=== PATIENT | female | born 1955 | race Caucasian/White ===

== ENCOUNTER 2022-01-22 10:50 | Emergency (ER) | payer MEDICARE, BC, SELFPAY ==
[2022-01-22 11:00] VITALS: BP 150/86; PULSE 66; RESP 16; TEMP 36.8; O2SAT 97; BMI 22.4
--- NOTE | 2022-01-22 11:54 | ED.NURSE ---
report received from jw couch, care taken over. pt resting in bed, waiting for MD to see. R leg elevated on pillow.
--- NOTE | 2022-01-22 12:44 | ED.LOWEXIN ---
HPI - Extremity Injury (Lower) General Time Seen by Provider: 12:44 Date Seen: 01/22/22 Chief Complaint: Extremity Pain/Injury, Lower Stated Complaint: Road rash right mohamud Time Seen by Provider: 01/22/22 12:36 Source: patient and RN notes reviewed Mode of arrival: ambulatory Limitations: no limitations History of Present Illness HPI Narrative: Vane is a very pleasant 66-year-old female stating that she is otherwise healthy who comes to the emergency room for evaluation regarding right leg injury. Patient noted that on, she was trying to help hold a piece of siding and it fell causing a injury to her right lower leg. This occurred 1 week ago. Patient has been ambulating without difficulty and has not been experiencing any fever or chills. This area was starting to scab over but then started to look red and has been weeping in the past couple days. Patient's neighbor actually director her cut to come to the emergency room. Patient denies any significant pain. MD complaint: leg injury Onset (ago): week(s) Type of Injury: other (Skin avulsion) Place: home Severity: mild Associated symptoms: ambulatory Related Data Home Medications Medication Instructions Recorded Confirmed levothyroxine 75 mcg tablet 75 mcg PO DAILY 01/22/22 01/22/22 Previous Rx's Medication Instructions Recorded cephalexin 500 mg capsule 500 mg PO QID #28 cap 01/22/22 Allergies Allergy/AdvReac Type Severity Reaction Status Date / Time Sulfa (Sulfonamide Allergy Severe Rash Verified 01/22/22 11:04 Antibiotics) Review of Systems Status of ROS: Reports: 6 or more systems reviewed and unremarkable except as noted in History and below Const: Denies: fever or chills Cardio: Denies: chest pain or shortness of breath with exertion Resp: Denies: shortness of breath GI: Denies: abdominal pain, nausea or vomiting Musculo: Denies: back pain or extremity pain Neuro: Denies: numbness in extremities PFSH PFSH Social History Smoking Status: Never smoker Do you use any of these nicotine containing products: None Second hand tobacco smoke exposure: No How often do you have a drink containing alcohol: monthly or less AUDIT-C Alcohol total score: 1 Non-prescribed substance use: denies use service: No Exam Narrative: Exam Narrative: Past medical history hypothyroidism Family history lung cancer Social history Const: Vital Signs, click to edit/add: Vital Signs - 24 hr 01/22/22 11:00 Temperature 98.2 F Pulse Rate [Pulse Oximeter] 66 Respiratory Rate 16 Blood Pressure [Le ft Upper Arm] 150/86 H Pulse Oximetry 97 Documenting provider has reviewed patient's vital signs: yes Common normals: no apparent distress, oriented x3, no limitations and healthy appearing General appearance: cooperative HENMT: Common normals: external ears normal External ear: external ears normal Eye: General eye: normal appearance of both eyes Neck & C-Spine: Common normals: full ROM Resp: Common normals: normal respiratory effort and clear to auscultation bilaterally Auscultation: clear to auscultation bilaterally Cardio: Common normals: regular rate and regular rhythm Rate: regular rate Rhythm: regular rhythm Extremity: Right lower extremity: lower leg (Distal anterior mohamud right-sided scabbing and erythema) Other: Large scabbing over the distal anterior mohamud measuring approximately 8 cm in vertical height and 4 cm in horizontal height. This scab is weeping there is surrounding erythema. There is a large area of resolving ecchymosis extending onto the medial and lateral leg as well as nearly to the knee. There is no calf tenderness. The foot is somewhat edematous at 1+. Pedal pulses are intact. Neuro: Common normals: oriented x3 Skin: General skin exam: erythema and eschar Trauma: other Course Course Hospital Course: Patient clearly has infection of the right lower extremity. She has no systemic symptoms at this time. Will check a CBC, basic panel, CRP as well as get wound culture. IV will be placed. Vital Signs Vital signs: Initial Vital Signs Temperature 98.2 F 01/22/22 11:00 Temperature Source Temporal Artery Scan 01/22/22 11:00 Pulse Rate 66 01/22/22 11:00 Pulse Rhythm 01/22/22 11:00 Respiratory Rate 16 01/22/22 11:00 Blood Pressure 150/86 H 01/22/22 11:00 Blood Pressure Mean 107 01/22/22 11:00 Blood Pressure Position Sitting 01/22/22 11:00 Pulse Oximetry 97 01/22/22 11:00 Oxygen Delivery Method 01/22/22 11:00 Vital Signs Temperature 98.2 F 01/22/22 11:00 Pulse Rate 66 01/22/22 11:00 Respiratory Rate 16 01/22/22 11:00 Blood Pressure 150/86 H 01/22/22 11:00 Pulse Oximetry 97 01/22/22 11:00 Temperature 98.2 F 01/22/22 11:00 Pulse Rate 66 01/22/22 11:00 Respiratory Rate 16 01/22/22 11:00 Blood Pressure 150/86 H 01/22/22 11:00 Pulse Oximetry 97 01/22/22 11:00 MDM - Extremity Injury (Lower) MDM Narrative Medical decision making narrative: 1. Cellulitis-patient appears to have secondary cellulitis from a healing wound. White count reassuring at 4.89. Creatinine normal at 0.6. Will treat patient with Keflex 500 mg p.o. t.i.d.. I have asked patient to take her 1st doses a 1000 mg. I would continue to monitor this patient and return to the emergency room for any fever, vomiting or worsening symptoms. I suspect she will need to have wound consult at the wound care center and we will set her up for that appointment. She may need some debridement of the wound. 2. Disposition-patient is discharged home. Lab Data Attestation: I reviewed the patient's lab results. Labs: Lab Results 01/22/22 01/22/22 Range/Units 12:43 12:43 WBC 4.89 (4.50-11.00) K/uL RBC 4.27 (4.00-5.20) m/uL Hgb 12.8 (12.0-16.0) gm/dL Hct 38.8 (33.0-51.0) % MCV 91 (80-100) fL MCH 30 (26-34) pg MCHC 33 (32-36) gm/dL RDW Coeff of Riccardo 14.2 (11.5-15.5) % Plt Count 314 (140-440) K/uL Neut % (Auto) 72.2 H (42.0-72.0) % Lymph % (Auto) 16.2 L (20-44) % [place] % (Auto) 10.2 (0.0-11.0) % Eos % (Auto) 1.2 (0.0-7.0) % Baso % (Auto) 0.2 (0.0-3.0) % Neut # (Auto) 3.50 (1.7-7.0) K/uL Lymph # (Auto) 0.80 L (0.90-2.90) K/uL [place] # (Auto) 0.50 (0.00-0.90) K/UL Eos # (Auto) 0.06 (0.00-0.50) K/uL Baso # (Auto) 0.01 (0.00-0.30) K/uL Abs Immat Gran (auto) 0.00 (0.00-0.30) K/uL Sodium 138 (135-149) mmol/L Potassium 4.1 (3.6-5.1) mmol/L Chloride 103 (96-114) mmol/L Carbon Dioxide 27 (20-32) mmol/L BUN 15 (7-30) mg/dL Creatinine 0.6 (0.5-1.5) mg/dL Estimated Creat Clear 52.51 Estimated GFR 100 ml/min Glucose 97 (60-115) mg/dL Calcium 9.4 (8.4-10.6) mg/dL C-Reactive Protein 0.7 (0.5-1.0) mg/dL Discharge Plan Discharge Clinical Impression: Cellulitis Patient Disposition: Home, Self-Care Condition: Unchanged Additional Instructions: Start Keflex today for treatment of cellulitis and infection. Follow-up at the [facility] for recheck. Return to the emergency room for fever, worsening redness and as needed. Activity Level: No Restrictions Prescriptions: New cephalexin 500 mg capsule 500 mg PO QID Qty: 28 0RF No Action levothyroxine 75 mcg tablet 75 mcg PO DAILY 0RF Follow Up/Referrals: Phi Gutierrez MD [Primary Care Provider] - Stand Alone Forms: Eye Phone Info Instructions
[2022-01-22 13:03] LABS: Basophils Absolute Auto 0.01 K/uL (0.00-0.30); Basophils Percent Auto 0.2 % (0.0-3.0); Eosinophils Absolute Auto 0.06 K/uL (0.00-0.50); Eosinophils Percent Auto 1.2 % (0.0-7.0); Hematocrit 38.8 % (33.0-51.0); Hemoglobin* 12.8 gm/dL (12.0-16.0); Lymphocytes Percent Auto 16.2 % (20-44); Mean Corpuscular HGB Conc 33 gm/dL (32-36); Mean Corpuscular Hemoglobin 30 pg (26-34); Mean Corpuscular Volume 91 fL (80-100); Monocytes Percent Auto 10.2 % (0.0-11.0); Neutrophils Percent Auto 72.2 % (42.0-72.0); Platelet Count* 314 K/uL (140-440); RDW Coefficient of Variation % 14.2 % (11.5-15.5); Red Blood Count 4.27 m/uL (4.00-5.20); White Blood Count* 4.89 K/uL (4.50-11.00)
--- NOTE | 2022-01-22 13:03 | CRLHL7_ITS ---
For Patients: As a result of the Century Cures Act, medical imaging exams and procedure reports are released immediately into your electronic medical record. You may view this report before your referring provider. If you have questions, please contact your health care provider. INDICATION: anterior injury TECHNIQUE: Right tibia and fibula 2 views. COMPARISON: None. FINDINGS: Bones: Alignment is normal. No fractures or bone lesions. Joint spaces: Unremarkable. Soft tissues: Unremarkable. IMPRESSION: Unremarkable right tibia and fibula. Dictated by: Phi Atkinson MD @ 01/22/2022 14:04:20 (Electronically Signed)
[2022-01-22 13:05] LABS: Slide Review Reflex No
[2022-01-22 13:14] LABS: Chloride* 103 mmol/L (96-114); Sodium* 138 mmol/L (135-149)
[2022-01-22 13:15] LABS: Potassium* 4.1 mmol/L (3.6-5.1)
[2022-01-22 13:17] LABS: Creatinine* 0.6 mg/dL (0.5-1.5); Est. Creatinine Clearance* 52.51; Estimated Glomerular Filt Rate 100 ml/min
[2022-01-22 13:18] LABS: Blood Urea Nitrogen* 15 mg/dL (7-30); Calcium* 9.4 mg/dL (8.4-10.6); Carbon Dioxide* 27 mmol/L (20-32); Glucose* 97 mg/dL (60-115)
[2022-01-22 13:21] LABS: C Reactive Protein* 0.7 mg/dL (0.5-1.0)
== END 2022-01-22 15:03 | disposition home or self-care (01) ==
PROVIDERS: Emergency Provider Family Medicine; PCP Family Medicine
DX: L03.115 Cellulitis of right lower limb (principal)
CPT/HCPCS: 36415; 73590; 80048; 85025; 86140; 87077; 87186; 87205; 99283; 99284

== ENCOUNTER 2022-01-27 09:01 | Outpatient (CLI) | payer MEDICARE, BC, SELFPAY | END 2022-01-27 09:02 | disposition home or self-care (01) | PROVIDERS: PCP Family Medicine; Visit Provider Nurse Practitioner Family | DX: S80.811A Abrasion, right lower leg, initial encounter (principal); L03.115 Cellulitis of right lower limb; W20.8XXA Other cause of strike by thrown, projected or falling object, initial encounter; I83.012 Varicose veins of right lower extremity with ulcer of calf | CPT/HCPCS: 11043; 11046; 99213 ==

== ENCOUNTER 2022-02-03 09:04 | Outpatient (CLI) | payer MEDICARE, BC, SELFPAY | END 2022-02-03 09:05 | disposition home or self-care (01) | LOC: WOUND 09:05 | PROVIDERS: PCP Family Medicine; Visit Provider Nurse Practitioner Family | DX: L03.115 Cellulitis of right lower limb (principal) | CPT/HCPCS: 11043; 11046 ==

== ENCOUNTER 2022-02-10 08:16 | Outpatient (CLI) | payer MEDICARE, BC, SELFPAY | END 2022-02-10 08:17 | disposition home or self-care (01) | PROVIDERS: PCP Family Medicine; Visit Provider Nurse Practitioner Family | DX: I87.311 Chronic venous hypertension (idiopathic) with ulcer of right lower extremity (principal); L97.819 Non-pressure chronic ulcer of other part of right lower leg with unspecified severity | CPT/HCPCS: 11043 ==

== ENCOUNTER 2022-02-17 13:19 | Outpatient (CLI) | payer MEDICARE, BC, SELFPAY | END 2022-02-17 13:20 | disposition home or self-care (01) | LOC: WOUND 13:19 | PROVIDERS: PCP Family Medicine; Visit Provider Nurse Practitioner Family | DX: L03.115 Cellulitis of right lower limb (principal) | CPT/HCPCS: 11042 ==

== ENCOUNTER 2022-02-24 08:21 | Outpatient (CLI) | payer MEDICARE, BC, SELFPAY | END 2022-02-24 08:22 | disposition home or self-care (01) | LOC: WOUND 08:21 | PROVIDERS: PCP Family Medicine; Visit Provider Nurse Practitioner Family | DX: L03.115 Cellulitis of right lower limb (principal) | CPT/HCPCS: 11043 ==

== ENCOUNTER 2022-03-03 08:22 | Outpatient (CLI) | payer MEDICARE, BC, SELFPAY | END 2022-03-03 08:23 | disposition home or self-care (01) | LOC: WOUND 08:23 | PROVIDERS: PCP Family Medicine; Visit Provider Nurse Practitioner Family | DX: S80.11XA Contusion of right lower leg, initial encounter (principal); L03.115 Cellulitis of right lower limb | CPT/HCPCS: 11042 ==

== ENCOUNTER 2022-03-11 15:31 | Outpatient (CLI) | payer MEDICARE, BC, SELFPAY | END 2022-03-11 15:32 | disposition home or self-care (01) | LOC: WOUND 15:31 | PROVIDERS: PCP Family Medicine; Visit Provider Nurse Practitioner Family | DX: L03.115 Cellulitis of right lower limb (principal); S80.11XA Contusion of right lower leg, initial encounter; I87.311 Chronic venous hypertension (idiopathic) with ulcer of right lower extremity | CPT/HCPCS: 11042; 87070; 87186 ==

== ENCOUNTER 2022-03-11 16:17 | Outpatient (CLI) | payer MEDICARE, BC, SELFPAY | END 2022-03-11 16:18 | disposition home or self-care (01) | LOC: LAB 16:18 | PROVIDERS: PCP Family Medicine; Visit Provider Nurse Practitioner Family | DX: L97.919 Non-pressure chronic ulcer of unspecified part of right lower leg with unspecified severity (principal) | CPT/HCPCS: 87070; 87186 ==

== ENCOUNTER 2022-03-17 10:36 | Outpatient (CLI) | payer MEDICARE, BC, SELFPAY | END 2022-03-17 10:37 | disposition home or self-care (01) | LOC: WOUND 10:37 | PROVIDERS: PCP Family Medicine; Visit Provider Nurse Practitioner Family | DX: L03.115 Cellulitis of right lower limb (principal); B95.62 Methicillin resistant Staphylococcus aureus infection as the cause of diseases classified elsewhere; S80.11XA Contusion of right lower leg, initial encounter | CPT/HCPCS: 11042 ==

== ENCOUNTER 2022-03-24 08:17 | Outpatient (CLI) | payer MEDICARE, BC, SELFPAY | END 2022-03-24 08:18 | disposition home or self-care (01) | LOC: WOUND 08:18 | PROVIDERS: PCP Family Medicine; Visit Provider Nurse Practitioner Family | DX: L03.115 Cellulitis of right lower limb (principal) | CPT/HCPCS: 11042 ==

== ENCOUNTER 2022-03-31 08:21 | Outpatient (CLI) | payer MEDICARE, BC, SELFPAY | END 2022-03-31 08:22 | disposition home or self-care (01) | LOC: WOUND 08:22 | PROVIDERS: PCP Family Medicine; Visit Provider Nurse Practitioner Family | DX: L03.115 Cellulitis of right lower limb (principal) | CPT/HCPCS: 11042 ==

== ENCOUNTER 2022-04-08 07:55 | Outpatient (CLI) | payer MEDICARE, BC, SELFPAY | END 2022-04-08 07:56 | disposition home or self-care (01) | LOC: WOUND 07:55 | PROVIDERS: PCP Family Medicine; Visit Provider Nurse Practitioner Family | DX: I87.311 Chronic venous hypertension (idiopathic) with ulcer of right lower extremity (principal); L97.812 Non-pressure chronic ulcer of other part of right lower leg with fat layer exposed | CPT/HCPCS: 11042 ==

== ENCOUNTER 2022-04-14 08:23 | Outpatient (CLI) | payer MEDICARE, BC, SELFPAY | END 2022-04-14 08:24 | disposition home or self-care (01) | PROVIDERS: PCP Family Medicine; Visit Provider Nurse Practitioner Family | DX: S80.11XA Contusion of right lower leg, initial encounter (principal) | CPT/HCPCS: 11042 ==

== ENCOUNTER 2022-04-15 16:57 | Outpatient (CLI) | payer MEDICARE, BC, SELFPAY ==
[2022-04-15 09:30] LABS: Chloride* 102 mmol/L (96-114); Potassium* 4.7 mmol/L (3.6-5.1); Sodium* 137 mmol/L (135-149)
[2022-04-15 09:32] LABS: Cholesterol* 247 mg/dL (90-199)
[2022-04-15 09:33] LABS: Alanine Aminotransferase* 28 U/L (4-35); Blood Urea Nitrogen* 15 mg/dL (7-30); Carbon Dioxide* 28 mmol/L (20-32); Creatinine* 0.6 mg/dL (0.5-1.5); Estimated Glomerular Filt Rate 99 ml/min; Glucose* 102 mg/dL (60-115); Triglycerides* 79 mg/dL (40-149)
[2022-04-15 09:34] LABS: Calcium* 9.6 mg/dL (8.4-10.6); HDL Cholesterol* 81 mg/dL (>=50); LDL Cholesterol Calculated 150 mg/dL (<100)
== END 2022-04-15 16:58 | disposition home or self-care (01) ==
PROVIDERS: PCP Family Medicine; Visit Provider Family Medicine
DX: E78.5 Hyperlipidemia, unspecified (principal); E03.9 Hypothyroidism, unspecified; Z13.9 Encounter for screening, unspecified
CPT/HCPCS: 80048; 80061; 84443; 84460

== ENCOUNTER 2022-04-21 08:19 | Outpatient (CLI) | payer MEDICARE, BC, SELFPAY | END 2022-04-21 08:20 | disposition home or self-care (01) | LOC: WOUND 08:20 | PROVIDERS: PCP Family Medicine; Visit Provider Nurse Practitioner Family | DX: I87.311 Chronic venous hypertension (idiopathic) with ulcer of right lower extremity (principal); L97.812 Non-pressure chronic ulcer of other part of right lower leg with fat layer exposed | CPT/HCPCS: 15271; Q4151 ==

== ENCOUNTER 2022-04-28 07:29 | Outpatient (CLI) | payer MEDICARE, BC, SELFPAY ==
--- OUTSIDE RECORDS SUMMARY | 2022-04-28 07:32 | XMS_ITS | Clinical Summary ---
:1955 Author Organization [employer] [facility] [place] [address] Care Team Providers Name Role Phone Pcp, No Primary Care Provider Unavailable Allergies Active Allergy Reactions Severity Noted Date Comments Sulfa (Sulfonamide Antibiotics) Hives Medications Medication Sig Dispensed Refills Start Date End Date Status MULTIVITAMIN TAB take 1 tablet by 0 Active oral route once daily with food calcium Take 3 tablets 0 02/10/2012 Acti ve carbonate-vitamin D3, by mouth once 600 mg-400 unit, daily. (CALCIUM 600 + D) tablet glucosamine HCl 1,500 Take 1 tablet by 0 02/22/2014 Active mg tab mouth twice daily [id number] Take 1400 mg by 0 02/22/2014 Active oil 1,400 mg/5 mL liqd mouth twice daily. ascorbic acid (VITAMIN Take 1 tablet by 0 02/22/2014 Active C) 1,000 mg tablet mouth three times daily. medication order Holy Basil 0 02/27/2015 A ctive composer Extract 450 mg once daily levothyroxine Take 1 tablet by 90 tablet 3 02/27/2015 Active (SYNTHROID) 75 mcg mouth once tabletIndications: daily. Unspecified hypothyroidism fexofenadine (MARIO) Take 1 tablet by 0 05/03/2015 Active 180 mg tablet mouth once daily with a meal. azithromycin Take 2 tablets 6 tablet 0 05/03/2015 A ctive (ZITHROMAX) 250 mg with next meal tabletIndications: and one tablet Acute maxillary days 2-5 sinusitis, recurrence not specified benzonatate (TESSALON Take 1 capsule 30 capsule 0 05/03/2015 Active PERLES) 100 mg by mouth 3 times capsuleIndications: daily if needed Acute maxillary for Cough. sinusitis, recurrence not specified Active Problems Problem Noted Date Acne 02/11/2013 Mixed hyperlipidemia 11/24/2007 OSTEOPENIA 11/24/2007 Chest pain, unspecified 11/24/2007 Overview: atypical, likely GI related. Unspecified hypothyroidism Resolved Problems Problem Noted Date Resolved Date Osteoporosis, unspecified 12/16/2007 01/04/2010 Depression 11/24/2007 Immunizations Name Administration Dates Next Due Td (Age >=7 Years) 08/02/1996 Tdap 11/16/2006 11/16/2016 Family History Medical History Relation Name Comments Good Health Brother Cancer-prostate Father lung cancer Hyperlipidemia Father Hypertension Father Other Father multiple colon p olyps Osteoporosis Maternal Grandmother Cancer Mother non hodgkins lym phoma Osteoporosis Mother Psychiatric illness Mother Depression Osteoporosis Paternal Grandmother Cancer-breast No Family History Relation Name Status Comments Brother Father Alive Maternal Grandmother Mother Paternal Grandmother Social History Tobacco Use Types Packs/Day Years Used Date Never Smoker Smokeless Tobacco: Never Used Tobacco Cessation: Counseling Given: Yes Alcohol Use Standard Drinks/Week Comments No 0 (1 standard drink = 0.6 oz pure alcoho l) Sex Assigned at Date Recorded Not on file Obstetrics History Para Term AB IAB SAB Ectopic Multiple Living Live Births 2 2 2 Date Outcome GA Total Labor/2nd/3rd Weight Sex Delivery Anes PTL Ingris A 1 A5 Name Clin Labor Para Para Last Filed Vital Signs Vital Sign Reading Time Taken Comments Blood Pressure 120/77 05/03/2015 11:00 AM CDT tower Pulse 77 05/03/2015 11:00 AM CDT Temperature 36.7 ??C (98.1 ??F) 05/03/2015 11:00 AM CDT Respiratory Rate 16 11/16/2006 8:15 AM CDT Oxygen Saturation 97% 05/03/2015 11:00 AM CDT Inhaled Oxygen Concentration - - Weight 68.3 kg (150 lb 9.6 oz) 05/03/2015 11:00 AM CDT Height 167.6 cm (5' 6) 05/03/2015 11:00 AM CDT Body Mass Index 24.31 05/03/2015 11:00 AM CDT Plan of Treatment Health Maintenance Due Date Last Done Comments COVID-19 vaccine series (#1) 1955 Depression screening for age 12+ 1968 BMI (ht and wt on same day) for 1974 age 18+ Hepatitis C screening for age 0903/30/1974 18-79 Zoster (shingles) series for age 0903/30/2006 50+ (1 of 2) Colonoscopy through age 75 12/18/2015 12/17/2010 Mammogram for age 45-75 02/09/2016 02/08/2015, 02/07/2014, 02/02/2013, Additional history exists Tetanus booster 11/16/2016 11/16/2006, 08/02/1996 Lipids for age 45-75 02/09/2020 02/08/2015, 02/07/2014, 02/02/2013, Additional history exists DEXA/DXA scan for age 65+ 2021 02/07/2014, 12/19/2011 , 12/07/2009, Additional history exists Pneumococcal series for age 65+ (1 2021 - PCV) Influenza for age 65+ 03/06/2022 Tdap Completed 11/16/2006 Results Not on filefrom Last 3 Months Insurance Payer Benefit Plan / Subscriber ID Effective Dates Phone Addre ss Type Group BLUE CROSS BLUE CROSS OF [id number] 2014-Present [address] [place] [address] (Work) [id number] 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
--- NOTE | 2022-04-28 07:45 | CRLHL7_ITS ---
For Patients: As a result of the Century Cures Act, medical imaging exams and procedure reports are released immediately into your electronic medical record. You may view this report before your referring provider. If you have questions, please contact your health care provider. BILATERAL SCREENING MAMMOGRAM WITH COMPUTER-AIDED DETECTION AND TOMOSYNTHESIS TECHNIQUE: CC and MLO views were obtained. These mammographic images have been obtained using full-field digital technique. These mammographic images were interpreted with the benefit of computer-aided detection. Breast Tomosynthesis was used in this interpretation. COMPARISON FILM: 04/15/21, 04/04/20, 03/14/19. FINDINGS: The breasts are heterogeneously dense, which may obscure small masses IMPRESSION: There is no radiographic evidence for malignancy. ASSESSMENT: BI-RADS Category 1: Negative RECOMMENDATION: Routine screening mammogram in 1 year. A lay language report of this examination will be provided to the patient. Phi Butler M.D. Diagnostic Radiologist [email or web address] RL/Dictated by: Phi Butler MD @ 04/28/2022 11:57:00 AM (Electronically Signed)
== END 2022-04-28 07:30 | disposition home or self-care (01) ==
PROVIDERS: PCP Family Medicine; Visit Provider Family Medicine
DX: Z12.31 Encounter for screening mammogram for malignant neoplasm of breast (principal)
CPT/HCPCS: 77063; 77067

== ENCOUNTER 2022-04-28 08:23 | Outpatient (CLI) | payer MEDICARE, BC, SELFPAY ==
--- OUTSIDE RECORDS SUMMARY | 2022-04-28 08:25 | XMS_ITS | Clinical Summary ---
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
== END 2022-04-28 08:24 | disposition home or self-care (01) ==
PROVIDERS: PCP Family Medicine; Visit Provider Nurse Practitioner Family
DX: I87.311 Chronic venous hypertension (idiopathic) with ulcer of right lower extremity (principal); L97.812 Non-pressure chronic ulcer of other part of right lower leg with fat layer exposed
CPT/HCPCS: 11042

== ENCOUNTER 2022-05-05 08:19 | Outpatient (CLI) | payer MEDICARE, BC, SELFPAY ==
--- OUTSIDE RECORDS SUMMARY | 2022-05-05 08:25 | XMS_ITS | Clinical Summary ---
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
== END 2022-05-05 08:20 | disposition home or self-care (01) ==
LOC: WOUND 08:19
PROVIDERS: PCP Family Medicine; Visit Provider Nurse Practitioner Family
DX: I87.311 Chronic venous hypertension (idiopathic) with ulcer of right lower extremity (principal); L97.812 Non-pressure chronic ulcer of other part of right lower leg with fat layer exposed
CPT/HCPCS: 11042

== ENCOUNTER 2022-05-19 08:22 | Outpatient (CLI) | payer MEDICARE, BC, SELFPAY ==
--- OUTSIDE RECORDS SUMMARY | 2022-05-19 08:25 | XMS_ITS | Clinical Summary ---
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
== END 2022-05-19 08:23 | disposition home or self-care (01) ==
PROVIDERS: PCP Family Medicine; Visit Provider Nurse Practitioner Family
DX: S80.11XA Contusion of right lower leg, initial encounter (principal); I87.311 Chronic venous hypertension (idiopathic) with ulcer of right lower extremity; L97.819 Non-pressure chronic ulcer of other part of right lower leg with unspecified severity
CPT/HCPCS: 99212

== ENCOUNTER 2023-04-29 07:53 | Outpatient (CLI) | payer MEDICARE, BC, SELFPAY ==
--- NOTE | 2023-04-29 08:15 | CRLHL7_ITS ---
For Patients: As a result of the Century Cures Act, medical imaging exams and procedure reports are released immediately into your electronic medical record. You may view this report before your referring provider. If you have questions, please contact your health care provider. BILATERAL SCREENING MAMMOGRAM WITH COMPUTER-AIDED DETECTION AND TOMOSYNTHESIS TECHNIQUE: CC and MLO views were obtained. These mammographic images have been obtained using full-field digital technique. These mammographic images were interpreted with the benefit of computer-aided detection. Breast Tomosynthesis was used in this interpretation. COMPARISON FILM: 04/28/22, 04/15/21, 04/04/20. FINDINGS: There are scattered areas of fibroglandular density IMPRESSION: There is no radiographic evidence for malignancy. ASSESSMENT: BI-RADS Category 1: Negative RECOMMENDATION: Routine screening mammogram in 1 year. A lay language report of this examination will be provided to the patient. Phi Butler M.D. Diagnostic Radiologist [email or web address] RL/Dictated by: Phi Butler MD @ 04/29/2023 11:54:00 AM (Electronically Signed)
== END 2023-04-29 07:54 | disposition home or self-care (01) ==
LOC: MAMMO 07:54
PROVIDERS: PCP Family Medicine; Visit Provider Family Medicine
DX: Z12.31 Encounter for screening mammogram for malignant neoplasm of breast (principal)
CPT/HCPCS: 77063; 77067

== ENCOUNTER 2023-05-01 08:36 | Outpatient (CLI) | payer MEDICARE, BC, SELFPAY | END 2023-05-01 08:37 | disposition home or self-care (01) | PROVIDERS: PCP Family Medicine; Visit Provider Family Medicine | DX: Z00.00 Encounter for general adult medical examination without abnormal findings (principal); E78.5 Hyperlipidemia, unspecified; E03.9 Hypothyroidism, unspecified; M81.0 Age-related osteoporosis without current pathological fracture | CPT/HCPCS: 80048; 80061; 84443 ==

== ENCOUNTER 2023-05-06 03:44 | Observation (INO) | payer MEDICARE, BC, SELFPAY ==
[2023-05-06] VITALS (17 sets, daily range): BP systolic 121–181; BP diastolic 71–96; PULSE 50–95; RESP 16–18; TEMP 36.1–36.9; O2SAT 93–98; BMI 22.6; BMI 23.4
--- NOTE | 2023-05-06 04:00 | CRLHL7_ITS ---
For Patients: As a result of the Century Cures Act, medical imaging exams and procedure reports are released immediately into your electronic medical record. You may view this report before your referring provider. If you have questions, please contact your health care provider. INDICATION: Fall, right shoulder pain COMPARISON: None. TECHNIQUE: Three views right shoulder. FINDINGS: BONES: Obliquely oriented fracture through the lateral 3rd of the right clavicle. The fracture is mildly distracted but no significant elevation or angulation. The coracoclavicular distance is not well profiled on these radiographs. Normal mineralization. Organ ring mineralization in the proximal humeral metaphysis and diaphysis extending over a distance of 7 cm. No bony destruction or cortical endosteal scalloping. JOINT: Normal acromioclavicular joint alignment. The coracoclavicular distance is normal. Joint spaces: Normal. Soft Tissues: Normal. No foreign body. IMPRESSION: 1. Nondisplaced appearing right clavicle fracture. 2. 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 Dictated by Vanda Owens MD @ 05/06/2023 5:16:46 AM (Electronically Signed)
--- NOTE | 2023-05-06 04:00 | CRLHL7_ITS ---
For Patients: As a result of the Century Cures Act, medical imaging exams and procedure reports are released immediately into your electronic medical record. You may view this report before your referring provider. If you have questions, please contact your health care provider. INDICATION: Syncope, unwitnessed fall. COMPARISON: None. TECHNIQUE: CT of the brain/head without the use of IV contrast. Multiplanar axial, coronal, and sagittal reformats were reconstructed. FINDINGS: Normal lacey-white matter differentiation throughout. No intracranial hemorrhage. No mass, mass effect, or midline shift. The ventricles are normal in size and shape. No fracture or focal osseous lesion. The mastoid and middle ears are clear. The paranasal sinuses are clear. Included orbit and globe are normal. IMPRESSION: Normal head CT. Please note that all CT scans at this facility use dose modulation, iterative reconstruction, and/or weight-based dosing when appropriate to reduce radiation dose to as low as reasonably achievable. Dictated by Vanda Owens MD @ 05/06/2023 5:11:45 AM (Electronically Signed)
--- NOTE | 2023-05-06 04:23 | CRLHL7_ITS ---
For Patients: As a result of the Century Cures Act, medical imaging exams and procedure reports are released immediately into your electronic medical record. You may view this report before your referring provider. If you have questions, please contact your health care provider. INDICATION: Unwitnessed fall, right neck and shoulder pain. COMPARISON: Same-day head CT. TECHNIQUE: CT of the cervical spine without contrast. Multiplanar axial, coronal, and sagittal reformats were reconstructed. FINDINGS: Right clavicle fracture seen on the solar engineer image. No cervical spine fracture. Multilevel disc degenerative change. Multilevel facet degenerative change. Multilevel neural foraminal stenosis. No central canal stenosis. No focal bony lesions. Limited exam of the intracranial contents, soft tissues of the neck, and the lung apices is normal. IMPRESSION: 1. Right clavicle fracture seen on the solar engineer image. 2. No acute findings in the cervical spine. Degenerative change as above. Please note that all CT scans at this facility use dose modulation, iterative reconstruction, and/or weight-based dosing when appropriate to reduce radiation dose to as low as reasonably achievable. Dictated by Vanda Owens MD @ 05/06/2023 5:14:44 AM (Electronically Signed)
--- NOTE | 2023-05-06 04:24 | ED_ITS ---
HPI - General Adult General Date Seen: 05/06/23 Chief complaint: Syncope/Fainted Stated complaint: fall Time Seen by Provider: 05/06/23 03:56 History of Present Illness HPI narrative: This is a 68-year-old female presenting to the ER this morning with her for evaluation after an event where she lost consciousness and fell onto her bedroom floor, striking her head, injuring her right shoulder. History is obtained partly from the patient and partly from her because she cannot remember most of the events that occurred tonight. She has a past medical history only of hypothyroidism. She is on Synthroid for that. She does not take any other prescription medications but she does take supplements and vitamins. She has a family history of non-Hodgkin's lymphoma in her mother and mesothelioma and her father. She is worried that she might have cancer too, but does not have any specific reason for that worry. She does have history of a couple of benign fainting spells in her young adulthood but does not typically have a lot of fainting. No other history of heart disease, arrhythmia, valvular disease, coronary artery disease. No history of seizures. No history of cancer. No history of diabetes or hypoglycemia. She was treated for UTI with a course of antibiotics at the beginning of April, about 4 weeks ago, but has been completely resolved those symptoms for the past couple of weeks. She has been healthy and well lately. Normal appetite. Normal fluid intake. No illness. No fever. No vomiting or diarrhea. She went to bed normally last night. She got up to urinate once after going to bed. She took her Synthroid last night. She does not remember what happened. She recalls that she woke up on the floor next to her bed. Her was sleeping and did not hear her get out of bed but he did hear the banking that she made when her head hit the nightstand and she fell. He found her on the floor. She was unconscious and initially unresponsive for a minute or 2. After she regained consciousness she seemed quite confused for a while. She had injured her shoulder. There was some bleeding from the top of her head. Heel to get to the bathroom. While sitting on the toilet she had another episode where she lost consciousness. Her head tipped back. She had a little bit of some gurgling respirations but she kept her airway open and she seemed to have some twitching of her head. Her is unsure if it was a seizure or not. She can was a bit confused after the spell but not nearly as confused as after the 1st 1. Since the fall she has been nauseous. She has a lot of pain in her right should er.. She also has a mild headache. She is not having any trouble breathing. No chest pain. No abdominal pain. No back pain. No injury to her hip, or lower extremities. She cannot recall any recent chest pains, palpitations, or other cardiac symptoms. 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 Related Data Home Medications Medication Instructions Recorded Confirmed cholecalciferol (vitamin D3) 50 2,000 unit PO BID 04/24/22 05/01/23 mcg (2,000 unit) capsule loratadine 10 mg tablet 10 mg PO DAILY 04/24/22 05/01/23 metronidazole 0.75 % topical cream 1 applic topical DAILY PRN 04/24/22 05/01/23 multivitamin 1 tab PO QDAY 04/24/22 05/01/23 omega-3 fatty acids 1,000 mg 1,000 mg PO QDAY 04/24/22 05/01/23 capsule ascorbic acid (vitamin C) 1,000 mg 1 g PO Q6H 04/25/22 05/01/23 tablet (Vitamin C) calcium carb-Ca gluc 500 mg 2 tab PO DAILY 06/03/22 05/01/23 calcium-magnesium ox-Mg gluc 250 mg tablet (Calcium Magnesium) dynamic brain 2 tab PO DAILY 06/10/22 05/01/23 Previous Rx's Medication Instructions Recorded levothyroxine 75 mcg tablet 75 mcg PO DAILY #90 tabs 04/06/23 Allergies Allergy/AdvReac Type Severity Reaction Status Date / Time Sulfa (Sulfonamide Allergy Severe Rash Verified 05/01/23 07:45 Antibiotics) sulfamethoxazole AdvReac Intermediate Full Body Verified 05/01/23 07:45 [From ] Rash trimethoprim [From ] AdvReac Intermediate Full Body Verified 05/01/23 07:45 Rash [facility] Medical History (Updated 05/06/23 @ 06:19 by Issac Dejesus MD) History of adenomatous polyp of colon (05/09/21) ?Z86.010 - Personal history of colonic polyps (ICD-10) Chronic venous hypertension with ulcer ?I87.319 - Chronic venous hypertension (idiopathic) with ulcer of unspecified lower extremity (ICD-10) ?L97.909 - Non-pressure chronic ulcer of unspecified part of unspecified lower leg with unspecified severity (ICD-10) History of pathological fracture due to osteoporosis (2016) ?Z87.310 - Personal history of (healed) osteoporosis fracture (ICD-10) Trigger finger of right thumb (03/19/20) ?M65.311 - Trigger thumb, right thumb (ICD-10) Osteoporosis (2016) ?M81.0 - Age-related osteoporosis without current pathological fracture (ICD- 10) Hypothyroid ?E03.9 - Hypothyroidism, unspecified (ICD-10) Hyperlipidemia with target LDL less than 130 ?E78.5 - Hyperlipidemia, unspecified (ICD-10) Surgical History (Updated 03/19/22 @ 12:58 by Dianna Jennings) History of colonoscopy with polypectomy (05/09/21) ?Z98.890 - Other specified postprocedural states (ICD-10) ?Z86.010 - Personal history of colonic polyps (ICD-10) History of bunionectomy of both great toes ?Z98.890 - Other specified postprocedural states (ICD-10) Family History (Updated 03/19/22 @ 12:36 by Dianna Jennings) Father Colon polyps High blood pressure Lung cancer Mother Thyroid disease Osteoarthritis Non-Hodgkin lymphoma Depression Maternal Grandmother Osteoarthritis Osteoporosis Paternal Grandmother Osteoporosis Coronary artery disease Brother Family history of prostate cancer, Onset Age: 56 Social History (Updated 05/01/23 @ 08:12 by Jeanne Feliciano ~ [facility], [facility]) Narrative: Exercises regularly treadmill/daily walk. . 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 2 adult children (1 child ). What is your current living situation?: I presently have a place to live Problems where you live: no known problems In the past 12 months, utilities in danger of being shut off: no In past 12 months, lack of transportation kept you from medical appts, meetings, work, or getting things needed for daily living: no In the past 12 mos, have been you worried that your food would run out before you had money to buy more?: never true In the past 12 mos, the food you bought just didn't last and you didn't have money to buy more?: never true Smoking Status: Never smoker Do you use any of these nicotine containing products: None Second hand tobacco smoke exposure: No How often do you have a drink containing alcohol: monthly or less AUDIT-C Alcohol total score: 1 Non-prescribed substance use: denies use How often does anyone, including family, friends and others, physically hurt you : never How often does anyone, including family, friends and others, insult or talk down to you: never How often does anyone, including family, friends and others, threaten you with harm: never How often does anyone, including family, friends and others, scream or curse at you: never Little interest or pleasure in doing things: not at all Feeling down, depressed, or hopeless: not at all service: No Exam Narrative: Exam Narrative: Constitutional: Appears well-developed and well-nourished. Alert. Conversant. Non toxic. 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 She is nauseous and holding an emesis bag but not vomiting. HENT: Head: No depressed skull fracture, [place] Eyes, Mills's sign, or hemotympanum. Face normal. TMs normal. Nose: Nose normal. Mouth/Throat: Oral mucosa is clear and moist. no trismus. Pharynx normal. Tonsils symmetric. No tonsillar enlargement, erythema, or exudate. Eyes: Conjunctivae normal. EOM normal. Pupils equal, round, and reactive to light. No scleral icterus. Neck: Normal range of motion. Neck supple. No tracheal deviation present. No midline crepitus or step-off but given her confusion she cannot be cleared by clinical criteria. Cardiovascular: Normal rate, regular rhythm. No gallop. No friction rub. No murmur heard. Symmetric radial and PT artery pulses Pulmonary/Chest: Effort normal. No stridor. No respiratory distress. No wheezes. No rales. No rhonchi . No tenderness. Abdominal: Soft. Bowel sounds normal. No distension. No mass. No tenderness. No rebound. No guarding. Musculoskeletal: RUE: She is complaining of pain in her right shoulder. Inspection of the shoulder reveals suspicious deformity around the humeral head either a inferior dislocation or possibly a humeral neck fracture. Range of motion the shoulder is limited by pain. Humeral shaft, elbow, forearm, wrist, hand are nontender. Intact radial, median, ulnar nerve sensory function. Strong radial pulse. LUE: Normal range of motion. No tenderness. No deformity RLE: Normal range of motion. No edema. No tenderness. No deformity LLE: Normal range of motion. No edema. No tenderness. No deformity Lymph: No cervical adenopathy. No JVD Neurological: Alert and oriented to person, place, and time. Normal strength. CN II-VII intact. No sensory deficit. GCS eye subscore is 4. GCS verbal subscore is 5. GCS motor subscore is 6. Normal coordination Skin: Skin is warm and dry. No rash noted. No pallor. Normal capillary refill. Psychiatric: Normal mood. Normal affect. Const: Vital Signs, click to edit/add: Vital Signs - 24 hr 05/06/23 03:56 05/06/23 04:22 05/06/23 04:45 Temperature 96.9 F L Pulse Rate 61 Pulse Rate [Pulse Oximeter] 62 Respiratory Rate 18 16 Blood Pressure 164/92 H Blood Pressure [Ri ght Upper Arm] 181/96 H Pulse Oximetry 98 97 97 Oxygen Delivery Me thod Room Air 05/06/23 05:02 05/06/23 05:03 05/06/23 05:08 Temperature 98.0 F 98.0 F Pulse Rate 57 L Pulse Rate [Pulse Oximeter] 60 Respiratory Rate 16 16 Blood Pressure 152/77 H Blood Pressure [Ri ght Upper Arm] 152/77 H Pulse Oximetry 96 96 Oxygen Delivery Me thod Room Air Course Vital Signs Vital signs: Initial Vital Signs Temperature 96.9 F L 05/06/23 03:56 Temperature Source Temporal Artery Scan 05/06/23 03:56 Pulse Rate 62 05/06/23 03:56 Respiratory Rate 18 05/06/23 03:56 Blood Pressure 181/96 H 05/06/23 03:56 Blood Pressure Mean 124 H 05/06/23 03:56 Blood Pressure Position Sitting 05/06/23 03:56 Pulse Oximetry 98 05/06/23 03:56 Oxygen Delivery Method Room Air 05/06/23 03:56 Vital Signs Temperature 96.9 F L 05/06/23 03:56 Pulse Rate 62 05/06/23 03:56 Respiratory Rate 18 05/06/23 03:56 Blood Pressure 181/96 H 05/06/23 03:56 Pulse Oximetry 98 05/06/23 03:56 Oxygen Delivery Method Room Air 05/06/23 03:56 Temperature 98.0 F 05/06/23 05:08 Pulse Rate 60 05/06/23 05:08 Respiratory Rate 16 05/06/23 05:08 Blood Pressure 152/77 H 05/06/23 05:08 Pulse Oximetry 96 05/06/23 05:08 Oxygen Delivery Method Room Air 05/06/23 05:08 Medical Decision Making [facility] Narrative Medical decision making narrative: This patient presents for evaluation of an event where she lost consciousness and fell to the floor next to her bed tonight. Unclear circumstances but is suspected that she probably was getting up to go to the bathroom when she fell.. A broad differential was considered. History provided suggests probable syncope. did see a 2nd event which she is on the toilet where she had some unusual respirations but that sounds more like convulsive syncope than a true seizure. No murmurs . Initial ECG shows normal sinus rhythm and no dysrhythmogenic abnormality such as WPW, prolonged QT, Brugada syndrome, and no ischemia. Initial troponin negative EKG nonischemic. I do think serial troponins are indicated.. No headache or other neurologic symptoms to suggest subarachnoid , stroke. 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 A broad differential diagnosis was considered including SVT, Atrial fibrillation, ventricular arrhythmia, thyroid disease (TSH was normal last week), acute electrolyte abnormality, drugs/medications, medi cation side effect, anemia, heart disease, among others. She did injure her right shoulder when she fell. X-rays confirm a mildly inferiorly displaced fracture through the lateral and of the clavicle. This is closed. She is neurovascularly intact. Placed into a sling. Will need outpatient orthopedic follow-up for that. Hopefully will be non operative She did hit her head when she fell. She had a small amount of bleeding at home. No large laceration here. Head CT negative for intracranial hemorrhage. C- spine CT is negative for fracture. She has now had 6 of these events where she has lost consciousness in the past 6 months. Pattern concerning for possible cardiac arrhythmia. I do think hospitalization is warranted for further workup. Incidentally right shoulder x-ray reveals a benign enchondroma of the right humeral head. Discussed with [place] hospitalist, through [facility] in. The will accept for admission to the medical floor for cardiac monitoring, troponins, echocardi ogram. Lab Data Labs: Lab Results 05/06/23 05/06/23 05/06/23 Range/Units 04:01 04:26 05:19 WBC 6.01 (4.50-11.00) K/uL RBC 4.15 (4.00-5.20) m/uL Hgb 12.3 (12.0-16.0) gm/dL Hct 38.0 (33.0-51.0) % MCV 92 (80-100) fL MCH 30 (26-34) pg MCHC 32 (32-36) gm/dL RDW Coeff of Riccardo 14.1 (11.5-15.5) % Plt Count 282 (140-440) K/uL Neut % (Auto) 69.6 (42.0-72.0) % Lymph % (Auto) 17.0 L (20-44) % Charles % (Auto) 8.7 (0.0-11.0) % Eos % (Auto) 3.3 (0.0-7.0) % Baso % (Auto) 0.7 (0.0-3.0) % Neut # (Auto) 4.19 (1.7-7.0) K/uL Lymph # (Auto) 1.00 (0.90-2.90) K/uL Charles # (Auto) 0.50 (0.00-0.90) K/UL Eos # (Auto) 0.20 (0.00-0.50) K/uL Baso # (Auto) 0.04 (0.00-0.30) K/uL Abs Immat Gran (auto) 0.04 (0.00-0.30) K/uL Imm/Tot Granulo (auto) 0.7 % Sodium 136 (135-149) mmol/L Potassium 4.0 (3.6-5.1) mmol/L Chloride 97 (96-114) mmol/L Carbon Dioxide 27 (20-32) mmol/L Anion Gap 12 (7-15) mEq/L BUN 10 (7-30) mg/dL Creatinine 0.6 (0.5-1.5) mg/dL Estimated Creat Clear 51.11 Estimated GFR 98 ml/min Glucose 107 (60-115) mg/dL Lactate 0.7 (0.5-1.9) mmol/L Calcium 9.2 (8.4-10.6) mg/dL Troponin I < 0.01 L (0.01-0.04) ng/mL Urine Color Yellow (Yellow) Urine Appearance Clear (Clear) Urine pH 6.5 (5.0-8.5) Ur Specific [place] 1.025 (1.000-1.030) Urine Protein Negative (Negative) Urine Glucose (UA) Negative (Negative) Urine Ketones Negative (Negative) Urine Blood Negative (Negative) Urine Nitrite Negative (Negative) Urine Bilirubin Negative (Negative) Urine Urobilinogen 0.2 (0.2-1.0) Ur Leukocyte Esterase Negative (Negative) Urine RBC 0-2 (0-2) Urine WBC 0-2 (0-5) Ur Squamous Epith Cells Few (None-Few) Urine Bacteria None (None) Lab Acknowledgement Test Added Imaging Data CT scan - head: Attestation: I have reviewed the pertinent imaging results. My impression: no hemorrhage Radiologist's impression: IMPRESSION: Normal head CT. CT C spine: Attestation: I have reviewed the pertinent imaging results. Radiologist's impression: IMPRESSION: 1. Right clavicle fracture seen on the file drawer finisher image. 2. No acute findings in the cervical spine. Degenerative change as above. xr R shoulder: Attestation: I have reviewed the pertinent imaging results. Radiologist's impression: IMPRESSION: 1. Nondisplaced appearing right clavicle fracture. 2. 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 Chest x-ray: Attestation: I have reviewed the pertinent imaging results. Radiologist's impression: IMPRESSION: 1. No acute pulmonary findings. 2. Age indeterminate T11 compression fracture. ECG Data Attestation: I personally reviewed and interpreted this ECG as follows: Interpretation: Normal sinus rhythm . Rate 60 CO 144 QRS axis incomplete right bundle-branch block. Normal axis. ST segment/T wave: No ST segment elevation or depression QTc: 446 No WPW, delta waves, Brugada syndrome. Discharge Plan Discharge Clinical Impression: Fx clavicle, acrom end-closed, Concussion, Syncope and collapse, Enchondroma of humerus Prescriptions: No Action cholecalciferol (vitamin D3) 50 mcg (2,000 unit) capsule 2,000 unit PO BID loratadine 10 mg tablet 10 mg PO DAILY omega-3 fatty acids 1,000 mg capsule 1,000 mg PO QDAY multivitamin Tablet 1 tab PO QDAY metronidazole 0.75 % cream 1 applic topical DAILY PRN Patient Comments: APPLY TOPICALLY TO FACE 1 TO 2 TIMES DAILY ascorbic acid (vitamin C) [Vitamin C] 1,000 mg tablet 1 g PO Q6H dynamic brain tablet 2 tab PO DAILY Calcium Magnesium 500 mg calcium -250 mg tablet 2 tab PO DAILY levothyroxine 75 mcg tablet 75 mcg PO DAILY Qty: 90 0RF Follow Up/Referrals: Phi Gutierrez MD [Primary Care Provider] -
[2023-05-06 04:30] LABS: Lactate* 0.7 mmol/L (0.5-1.9)
[2023-05-06 04:31] LABS: Basophils Absolute Auto 0.04 K/uL (0.00-0.30); Basophils Percent Auto 0.7 % (0.0-3.0); Eosinophils Percent Auto 3.3 % (0.0-7.0); Hemoglobin* 12.3 gm/dL (12.0-16.0); Immature Granulocytes Abs Auto 0.04 K/uL (0.00-0.30); Immature Granulocytes Pct Auto 0.7 %; Mean Corpuscular HGB Conc 32 gm/dL (32-36); Mean Corpuscular Hemoglobin 30 pg (26-34); Mean Corpuscular Volume 92 fL (80-100); Monocytes Percent Auto 8.7 % (0.0-11.0); Neutrophils Absolute Auto 4.19 K/uL (1.7-7.0); Neutrophils Percent Auto 69.6 % (42.0-72.0); Platelet Count* 282 K/uL (140-440); RDW Coefficient of Variation % 14.1 % (11.5-15.5); Red Blood Count 4.15 m/uL (4.00-5.20); White Blood Count* 6.01 K/uL (4.50-11.00)
[2023-05-06 04:33] LABS: Slide Review Reflex No
[2023-05-06 04:37] LABS: Appearance Urine Clear (Clear); Bilirubin Urine Negative (Negative); Blood Urine Negative (Negative); Color Urine Yellow (Yellow); Glucose Urine Negative (Negative); Ketones Urine Negative (Negative); Leukocyte Esterase Urine Negative (Negative); Nitrite Urine Negative (Negative); Protein Urine Negative (Negative); Specific Gravity Urine 1.025 (1.000-1.030); Urobilinogen Urine 0.2 (0.2-1.0); pH Urine 6.5 (5.0-8.5)
[2023-05-06 04:44] LABS: RBC Urine 0-2 (0-2); Squamous Epithelial Cell Urine Few (None-Few); WBC Urine 0-2 (0-5)
[2023-05-06 04:46] LABS: Chloride* 97 mmol/L (96-114)
[2023-05-06 04:47] LABS: Sodium* 136 mmol/L (135-149)
--- NOTE | 2023-05-06 04:47 | CRLHL7_ITS ---
For Patients: As a result of the Cures Act, medical imaging exams and procedure reports are released immediately into your electronic medical record. You may view this report before your referring provider. If you have questions, please contact your health care provider. INDICATION: Cough, right shoulder pain, syncope COMPARISON: Same-day shoulder radiograph TECHNIQUE: PA and lateral 2 view chest radiograph. FINDINGS: The lungs are well expanded. Minimal atelectasis in the right lung base. No pulmonary edema. No pleural effusion. No pneumothorax. No pneumomediastinum. Normal heart size. Ectatic thoracic aorta.. Bones: The right distal clavicle fracture is not seen in the field of view. The right coracoclavicular distance is asymmetrically widened, 13 mm versus 9 mm. Exaggerated thoracic kyphosis. T11 compression fracture with about 20 percent loss of height anteriorly. IMPRESSION: 1. No acute pulmonary findings. 2. Age indeterminate T11 compression fracture. 3. Widened right coracoclavicular distance may indicate ligamentous injury in the setting of a distal clavicle fracture. Dictated by Vanda Owens MD @ 05/06/2023 5:19:23 AM (Electronically Signed)
[2023-05-06 04:49] LABS: Creatinine* 0.6 mg/dL (0.5-1.5); Est. Creatinine Clearance* 51.11; Estimated Glomerular Filt Rate 98 ml/min
[2023-05-06 04:50] LABS: Anion Gap 12 mEq/L (7-15); Blood Urea Nitrogen* 10 mg/dL (7-30); Calcium* 9.2 mg/dL (8.4-10.6); Carbon Dioxide* 27 mmol/L (20-32); Glucose* 107 mg/dL (60-115)
[2023-05-06] MEDS: 0.9 % SODIUM CHLORIDE 1000 ml 1,000 ML IV (05:00)
[2023-05-06] MEDS: ONDANSETRON 2 MG/ML inj 4 MG IVP (05:00)
[2023-05-06] MEDS: KETOROLAC 15 MG/ML inj IVP (05:03)
[2023-05-06 06:01] LABS: Troponin I* < 0.01 ng/mL (0.01-0.04)
[2023-05-06] MEDS: ACETAMINOPHEN 325 MG TABLET PO (09:27)
[2023-05-06] MEDS: SODIUM CHLORIDE 0.9 % (FLUSH) 10 ML SYRINGE 5 ML IVF ×2 (11:10→21:36)
[2023-05-06] MEDS: IBUPROFEN 600 MG TABLET PO ×2 (12:47→18:11)
--- NOTE | 2023-05-06 12:57 | P.IMHP_ITS ---
Hospitalist- H&P: HPI History of Present Illness Date Seen: 05/06/23 Chief complaint: fall Narrative: Vane Diaz is a 68 year old female past medical history significant for hypothyroidism, osteoporosis, hyperlipidemia who takes several supplements, very few prescription medications is admitted to the medical floor for further management recurrent syncopal episodes. Patient is seen with her at bedside. He initially begins answering her questions for her. Reports 6 syncopal episodes in the past 6 months. Fell twice overnight this morning. First was around 1:00 a.m. and 2nd event was somewhere in the next couple of hours after that. During 1 of the events, patient was sitting on the toilet and he found her with her head leaning against the wall. She did not fall off of the toilet. Another episode she fell while standing in the bedroom. This resulted in right shoulder pain which was diagnosed as a right clavicle fracture in the ED. Patient denies history of chronic headaches. Does have a mild headache this morning. Denies chronic dizziness, reporting only occasional episodes. Reports need at times to take it slow from sitting to standing but has never had a syncopal episode while moving from chair to standing. Denies recent fevers or chills. Denies chest pain or shortness of breath. Denies dyspnea on exertion. Denies recent nausea, vomiting. No change in bowels. Denies UTI symptoms concurrently. Was treated for UTI approximately 4 weeks ago. Her last UTI was otherwise 40+ years ago. Her tells me she had fainting episodes in her 20s but none since. Patient tells me she does occasionally experience palpitations or a racing heart at bedtime. These episodes resume on their own shortly after starting. She denies new or recent changes in medications. Denies change in diet. Typically walks 7-10 miles daily. Nonsmoker. Does not vape. Denies alcohol use. Denies narcotic or recreational drug use. In the ED, labs including CBC, BMP, urinalysis, troponin unremarkable. CT head unremarkable. Right clavicle fracture noted on plain film. Sling was placed. She was seen for routine physical with her PCP on 05/01/2023. No outstanding outpatient workup. Review of Systems Narrative: Insert review of systems [facility] Medical History History of adenomatous polyp of colon (05/09/21) ?Z86.010 - Personal history of colonic polyps (ICD-10) Chronic venous hypertension with ulcer ?I87.319 - Chronic venous hypertension (idiopathic) with ulcer of unspecified lower extremity (ICD-10) ?L97.909 - Non-pressure chronic ulcer of unspecified part of unspecified lower leg with unspecified severity (ICD-10) History of pathological fracture due to osteoporosis (2016) ?Z87.310 - Personal history of (healed) osteoporosis fracture (ICD-10) Trigger finger of right thumb (03/19/20) ?M65.311 - Trigger thumb, right thumb (ICD-10) Osteoporosis (2016) ?M81.0 - Age-related osteoporosis without current pathological fracture (ICD- 10) Hypothyroid ?E03.9 - Hypothyroidism, unspecified (ICD-10) Hyperlipidemia with target LDL less than 130 ?E78.5 - Hyperlipidemia, unspecified (ICD-10) Surgical History History of colonoscopy with polypectomy (05/09/21) ?Z98.890 - Other specified postprocedural states (ICD-10) ?Z86.010 - Personal history of colonic polyps (ICD-10) History of bunionectomy of both great toes ?Z98.890 - Other specified postprocedural states (ICD-10) Family History Father Colon polyps High blood pressure Lung cancer Mother Thyroid disease Osteoarthritis Non-Hodgkin lymphoma Depression Maternal Grandmother Osteoarthritis Osteoporosis Paternal Grandmother Osteoporosis Coronary artery disease Brother Family history of prostate cancer, Onset Age: 56 Social History Narrative: Exercises regularly treadmill/daily walk. . 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 2 adult children (1 child ). What is your current living situation?: I presently have a place to live Problems where you live: no known problems Problems where you live details: no known problems In the past 12 months, utilities in danger of being shut off: no In past 12 months, lack of transportation kept you from medical appts, meetings, work, or getting things needed for daily living: no In the past 12 mos, have been you worried that your food would run out before you had money to buy more?: never true In the past 12 mos, the food you bought just didn't last and you didn't have money to buy more?: never true Smoking Status: Never smoker Do you use any of these nicotine containing products: None Second hand tobacco smoke exposure: No How often do you have a drink containing alcohol: never AUDIT-C Alcohol total score: 0 Non-prescribed substance use: denies use Caffeine: Yes How often does anyone, including family, friends and others, physically hurt you : never How often does anyone, including family, friends and others, insult or talk down to you: never How often does anyone, including family, friends and others, threaten you with harm: never How often does anyone, including family, friends and others, scream or curse at you: never Little interest or pleasure in doing things: not at all Feeling down, depressed, or hopeless: not at all service: No Meds Home Medications and Allergies Home Medications Medication Instructions Recorded Confirmed Type cholecalciferol (vitamin D3) 50 2,000 unit PO BID 04/24/22 05/01/23 History mcg (2,000 unit) capsule loratadine 10 mg tablet 10 mg PO DAILY 04/24/22 05/01/23 History metronidazole 0.75 % topical cream 1 applic topical DAILY PRN 04/24/22 05/01/23 History multivitamin 1 tab PO QDAY 04/24/22 05/01/23 History omega-3 fatty acids 1,000 mg 1,000 mg PO QDAY 04/24/22 05/01/23 History capsule ascorbic acid (vitamin C) 1,000 mg 1 g PO Q6H 04/25/22 05/01/23 History tablet (Vitamin C) calcium carb-Ca gluc 500 mg 2 tab PO DAILY 06/03/22 05/01/23 History calcium-magnesium ox-Mg gluc 250 mg tablet (Calcium Magnesium) dynamic brain 2 tab PO DAILY 06/10/22 05/01/23 History Allergies Allergy/AdvReac Type Severity Reaction Status Date / Time Sulfa (Sulfonamide Allergy Severe Rash Verified 05/01/23 07:45 Antibiotics) sulfamethoxazole AdvReac Intermediate Full Body Verified 05/01/23 07:45 [From ] Rash trimethoprim [From ] AdvReac Intermediate Full Body Verified 05/01/23 07:45 Rash Exam Narrative: Exam Narrative: PHYSICAL EXAM General: Sitting up in bed, pleasant, conversant, NAD HEENT: Sclera white, EOMI, oral mucosa moist Cardiovascular: RRR, S1S2. No pitting edema Pulmonary: CTA bilaterally without rhonchi, rales, expiratory wheezes. No dyspnea Neurological: Alert, answering questions appropriately, cranial nerves intact, no focal findings Extremities: No gross joint deformity or swelling. AROMI. Neurovascularly intac t Skin: Warm, dry. Const: Vital Signs, click to edit/add: Vital Signs - 24 hr 05/06/23 03:56 05/06/23 04:22 05/06/23 04:45 Temperature 96.9 F L Pulse Rate 61 Pulse Rate [Pulse Oximeter] 62 Respiratory Rate 18 16 Blood Pressure 164/92 H Blood Pressure [Le ft Arm] Blood Pressure [Ri ght Upper Arm] 181/96 H Pulse Oximetry 98 97 97 Oxygen Delivery Me thod Room Air 05/06/23 05:02 05/06/23 05:03 05/06/23 05:08 Temperature 98.0 F 98.0 F Pulse Rate 57 L Pulse Rate [Pulse Oximeter] 60 Respiratory Rate 16 16 Blood Pressure 152/77 H Blood Pressure [Le ft Arm] Blood Pressure [Ri ght Upper Arm] 152/77 H Pulse Oximetry 96 96 Oxygen Delivery Me thod Room Air 05/06/23 06:02 05/06/23 06:27 05/06/23 07:43 Temperature 98.0 F 98.2 F Pulse Rate 58 L Pulse Rate [Pulse Oximeter] 61 Respiratory Rate 16 16 Blood Pressure 121/71 Blood Pressure [Le ft Arm] 147/77 H Blood Pressure [Ri ght Upper Arm] Pulse Oximetry 93 96 Oxygen Delivery Me thod Room Air 05/06/23 07:43 05/06/23 08:57 Temperature Pulse Rate Pulse Rate [Pulse Oximeter] Respiratory Rate Blood Pressure Blood Pressure [Le ft Arm] Blood Pressure [Ri ght Upper Arm] Pulse Oximetry 96 93 Oxygen Delivery Me thod Room Air Room Air Hospitalist - H&P: Result Labs Labs: Short CBC 05/06/23 Range/Units 04:26 WBC 6.01 (4.50-11.00) K/uL Hgb 12.3 (12.0-16.0) gm/dL Hct 38.0 (33.0-51.0) % Plt Count 282 (140-440) K/uL BMP 05/06/23 04:26 Sodium 136 Potassium 4.0 Chloride 97 Carbon Dioxide 27 BUN 10 Creatinine 0.6 Glucose 107 Calcium 9.2 Cardiac Enzymes 05/06/23 Range/Units 04:26 Troponin I < 0.01 L (0.01-0.04) ng/mL Urine 05/06/23 Range/Units 04:01 Urine Color Yellow (Yellow) Urine Appearance Clear (Clear) Urine pH 6.5 (5.0-8.5) Ur Specific [place] 1.025 (1.000-1.030) Urine Protein Negative (Negative) Urine Glucose (UA) Negative (Negative) Assessment and Plan Assessment and plan (1) Syncope and collapse: Problem comment: -recurrent with 6 episodes in the past 6 months, typically overnight, in the bedroom or the bathroom, not exclusively related to Valsalva maneuvers -history of fainting episodes 40+ years ago -reports occasional palpitations at bedtime -telemetry -orthostatics - 1st set unremarkable -PT/OT consults -echo ordered -recommend outpatient Holter monitor/event monitor given report of bedtime palpitations Status: Acute (2) Concussion: Problem comment: -in setting of syncope with fall -symptomatic with mild headache -pain management as needed -monitor for new or worsening symptoms, consider repeat imaging if warrants Status: Acute (3) Fx clavicle, acrom end-closed: Problem comment: -sling -pain management to include scheduled Tylenol, lidocaine patch, ice, p.r.n. ibuprofen, p.r.n. oxycodone -outpatient follow-up with PCP. Consider Ortho consult if necessary Status: Acute (4) Hypothyroid: Problem comment: -most recent TSH 1.22, continue current levothyroxine dosing Status: Chronic (5) Enchondroma of humerus: Problem comment: -incidental finding, outpatient follow-up recommended Status: Acute Plan CODE: Full VTE PPX: Enoxaparin Disposition: Observation, likely discharge 05/07/23
[2023-05-06] MEDS: LIDOCAINE 5% PATCH 1 PATCH TRANSDERMA (14:33)
--- NOTE | 2023-05-06 15:09 | PC.NURSE ---
End of shift note, [id number]: Pt alert and oriented, very pleasant and cooperative. Vitals stable, on RA. Tele NSR. Pt rates pain 4-8/10 this shift for headache and R shoulder r/t R clavicle fracture. PRN Tylenol & Ibuprofen admin this shift and brought pain from 8 to a 4 per pt. Tylenol changed to scheduled starting this afternoon. Declined offer for ice pack. Scheduled lidocaine patch applied to R shoulder. SBA to bathroom, at bedside off and on during shift. Orthostatics completed this shift, hospitalist updated, minimal change to BP and HRs. Pt saw PT and OT, MOCA per OT. Echo completed this afternoon. Pt understands to use call light.
[2023-05-06] MEDS: ACETAMINOPHEN 500 MG TABLET 1000 MG PO ×2 (16:10→21:33)
--- NOTE | 2023-05-06 19:47 | PC.NURSE ---
VSS, RA. Head and right clavicular pain of 3-4 w/ scheduled tylenol & PRN ibuprofen. Tolerating regular diet, drinking well. Voided x4, last BM this AM. Small open area, size of a eraser head on top of head from fall- no MADISON mei. RUE w/ sling. SBA to BR, d/t admission reason. When asked pt about falls, she reports that the falls have happened when she gets up to bathroom at night. She reports she usually gets up 2 times and stated that she takes her medications at these times. The first bathroom trip she takes her synthroid, and the second time her supplement Dynamic Brain. She takes the supplement as she felt she was getting foggy because her family gives her a hard time for having to write everything down. 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 PIV in left FA- SL'd. Family here this afternoon. Asked if she felt safe at home, pt reports yes. Will continue to monitor, follow POC, and keep pt and family updated. Portia Aiken RN
[2023-05-06] MEDS: ENOXAPARIN 40 MG/0.4 ML INJ SUBCUT (21:36)
--- NOTE | 2023-05-07 02:01 | PC.NURSE ---
Pt Blood Glucose Taken @ 0200 was 100.
[2023-05-07 02:02] VITALS: BP 139/69; PULSE 57; RESP 16; TEMP 36.8; O2SAT 94
[2023-05-07 03:27] VITALS: TEMP 36.8
[2023-05-07] MEDS: ACETAMINOPHEN 500 MG TABLET 1000 MG PO ×2 (03:27→10:11)
--- NOTE | 2023-05-07 04:51 | PC.NURSE ---
Pt rested well this night. Pain controlled. Afebrile. Alert and oriented. Stable on feet
[2023-05-07] MEDS: LEVOTHYROXINE 75 MCG TABLET PO (06:20)
[2023-05-07 07:00] VITALS: PULSE 55
[2023-05-07 09:13] VITALS: BP 136/86; BP 148/68; BP 149/85; PULSE 60; PULSE 63; PULSE 68
[2023-05-07] MEDS: LIDOCAINE 5% PATCH 1 PATCH TRANSDERMA (10:12)
--- NOTE | 2023-05-07 15:07 | PM.DS1 ---
DS: Providers Provider Date Seen: 05/07/23 Date of admission: 05/06/23 06:36 Primary care physician: Phi Gutierrez MD Admitting Clinician: Maria Fernanda Connolly MD Consults: 05/06/23 08:57 Consult to Occupational Therapy [CONS] Routine Comment: Reason(s) for OT Consult:: Evaluate and Treat Any Restrictions?:: No Restrictions Consult to Physical Therapy [CONS] Routine Comment: Reason(s) for PT Consult:: Evaluate and Treat Any Restrictions?:: No Restrictions Attending Physician on discharge: FOREIGN Balderas, [facility] Date of Discharge: 05/07/23 DS: Diagnosis Discharge Diagnosis (1) Syncope and collapse: Status: Acute Problem details: -recurrent with 6 episodes in the past 6 months, typically overnight, in the bedroom or the bathroom, not exclusively related to Valsalva maneuvers -history of fainting episodes 40+ years ago -reports occasional palpitations at bedtime -telemetry - unremarkable -orthostatics - 1st set unremarkable, repeat sets unremarkable -PT/OT consults - no acute needs identified -echo ordered shows normal left ventricular size, mildly increased wall thickness with prominent basal septum, normal global systolic function, calculated EF of 71%. Right ventricular cavity size is normal, global systolic RV function is normal. Mild the enlarged left atrium. Mitral valve is normal, mild mitral regurgitation. -recommend outpatient Holter monitor/event monitor given report of bedtime palpitations. Discussed with patient and . Will follow-up with outpatient PCP to get this scheduled. (2) Concussion: Status: Acute Problem details: -in setting of syncope with fall -symptomatic with mild headache, improved with ibuprofen and Tylenol -pain management as needed -monitor for new or worsening symptoms, consider repeat imaging if warrants. No new or worsening symptoms overnight, headache resolved. -discussed avoiding strenuous mental and physical activity. Follow up with outpatient PCP (3) Fx clavicle, acrom end-closed: Status: Acute Problem details: -sling to be continued at discharge -pain management to include scheduled Tylenol, lidocaine patch, ice, p.r.n. ibuprofen. Has not needed narcotics and not interested in any eye discharge. -outpatient follow-up with PCP 7-10 days. Consider Ortho consult if necessary (4) Osteoporosis: Status: Chronic Problem details: -On Reclast. Has upcoming DEXA scan scheduled. (5) Enchondroma of humerus: Status: Acute Problem details: -incidental finding, discussed, recommend outpatient follow-up (6) Hypothyroid: Status: Chronic Problem details: -most recent TSH 1.22, continue current levothyroxine dosing DS: Summary Hospital Course Hospital Course: [age] year old female past medical history significant for hypothyroidism, osteoporosis was admitted to the medical floor for further workup syncope. Course of care and details as noted above. Remainder of chronic medical comorbidities were monitored and managed with home medications. Status at Discharge Overall status at discharge: patient is back to baseline Time Spent with Patient Time attestation: Total time spent providing and/or coordinating discharge services: Time spent: Greater than 30 minutes Exam Narrative: Exam Narrative: PHYSICAL EXAM General: Sitting up in chair, pleasant, conversant, NAD Cardiovascular: RRR, Pulmonary: CTA bilaterally, No dyspnea on room air Neurological: Alert, answering questions appropriately, cranial nerves intact, no focal findings Extremities: No gross joint deformity or swelling. AROMI. Neurovascularly intact Skin: Warm, dry. Const: Vital Signs, click to edit/add: Vital Signs - 24 hr 05/06/23 19:00 05/06/23 22:52 05/06/23 22:57 Temperature 98.4 F 98.4 F Pulse Rate 50 L Pulse Rate [Pulse Oximeter] 59 L 54 L Pulse Rate [orthos tatic lying Right Pulse Oximeter] Pulse Rate [orthos tatic sitting Righ t Pulse Oximeter] Pulse Rate [orthos tatic standing Rig ht Pulse Oximeter] Respiratory Rate 16 16 Blood Pressure [Le ft Arm] 135/81 143/74 H Blood Pressure [or thostatic lying Le ft Arm] Blood Pressure [or thostatic sitting Left Arm] Blood Pressure [or thostatic standing Left Arm] Pulse Oximetry 93 95 Oxygen Delivery Me thod Room Air Room Air 05/06/23 22:59 05/07/23 02:02 05/07/23 03:27 Temperature 98.2 F 98.2 F Pulse Rate Pulse Rate [Pulse Oximeter] 54 L 57 L Pulse Rate [orthos tatic lying Right Pulse Oximeter] Pulse Rate [orthos tatic sitting Righ t Pulse Oximeter] Pulse Rate [orthos tatic standing Rig ht Pulse Oximeter] Respiratory Rate 16 Blood Pressure [Le ft Arm] 139/69 Blood Pressure [or thostatic lying Le ft Arm] Blood Pressure [or thostatic sitting Left Arm] Blood Pressure [or thostatic standing Left Arm] Pulse Oximetry 94 Oxygen Delivery Me thod Room Air 05/07/23 07:00 05/07/23 09:13 Temperature Pulse Rate 55 L Pulse Rate [Pulse Oximeter] Pulse Rate [orthos tatic lying Right Pulse Oximeter] 63 Pulse Rate [orthos tatic sitting Righ t Pulse Oximeter] 60 Pulse Rate [orthos tatic standing Rig ht Pulse Oximeter] 68 Respiratory Rate Blood Pressure [Le ft Arm] Blood Pressure [or thostatic lying Le ft Arm] 148/68 H Blood Pressure [or thostatic sitting Left Arm] 136/86 Blood Pressure [or thostatic standing Left Arm] 149/85 H Pulse Oximetry Oxygen Delivery Me thod Discharge Plan Discharge Disposition: Home, Self-Care Date of Admission: 05/06/23 06:36 Attending Provider on Discharge: Carmen Veliz Primary Care Provider: Phi Gutierrez Condition: Improved Anticipated Discharge Date/Time: 05/07/23 11:29 Discharge Medications: Continued cholecalciferol (vitamin D3) 50 mcg (2,000 unit) capsule 2,000 unit PO BID loratadine 10 mg tablet 10 mg PO DAILY omega-3 fatty acids 1,000 mg capsule 1,000 mg PO QDAY multivitamin Tablet 1 tab PO QDAY metronidazole 0.75 % cream 1 applic topical DAILY PRN Patient Comments: APPLY TOPICALLY TO FACE 1 TO 2 TIMES DAILY ascorbic acid (vitamin C) [Vitamin C] 1,000 mg tablet 1 g PO Q6H dynamic brain tablet 2 tab PO DAILY Calcium Magnesium 500 mg calcium -250 mg tablet 2 tab PO DAILY levothyroxine 75 mcg tablet 75 mcg PO DAILY Qty: 90 0RF Discharge Orders: Discharge Order (Routine); Ordered 05/07/23 Ordered By: Carmen Veliz Patient Education: Clavicle Fracture (GEN), Syncope (GEN), Concussion (GEN) Additional Instructions: Follow-up with your primary care provider for ongoing workup and management of syncopal episodes. RECOMMEND OUTPATIENT SETUP OF HOLTER MONITOR/EVENT MONITOR WITH YOUR PCP. For your clavicle fracture, continue to wear the sling. You may place in [id number] lidocaine patch to that shoulder for pain management. Continue Tylenol and or ibuprofen as needed. Ice to the area as needed for pain management. Follow-up with your PCP for ongoing management. You have a concussion. Continue to minimize strenuous physical and mental activity. Continue Tylenol and or ibuprofen for headaches. Should your symptoms linger for new or worsening symptoms arise, follow-up with PCP for re-evaluation. Activity Level: No Restrictions Discharge Diet: Regular Follow Up Appointments: Phi Gutierrez MD [Primary Care Provider] - 05/15/23 8:30 am (RECOMMEND OUTPATIENT TO MONITOR/EVENT MONITOR FOR NIGHTTIME PALPITATIONS, NIGHTTIME SYNCOPE EPISODES) Forms: [employer] Info Instructions
--- NOTE | 2023-05-07 19:31 | PC.NURSE ---
shift note: vss stable. pt denies dizziness or being lightheaded when standing or ambulating. pt up indept in room. reviewed dc instructions and copies sent with pt at dc. Belongings reviewed and sent with pt at dc. IV dc'd intact.
== END 2023-05-07 12:00 | disposition home or self-care (01) ==
LOC: ED 06:21 → MEDSURG 06:40
PROVIDERS: Admitting Provider Family Medicine; Emergency Provider Emergency Medicine; PCP Family Medicine; Visit Provider Family Medicine
DX: R55 Syncope and collapse (principal); S42.031A Displaced fracture of lateral end of right clavicle, initial encounter for closed fracture; S01.92XA Laceration with foreign body of unspecified part of head, initial encounter; D16.01 Benign neoplasm of scapula and long bones of right upper limb; S06.0XAA Concussion with loss of consciousness status unknown, initial encounter; E03.9 Hypothyroidism, unspecified; E78.5 Hyperlipidemia, unspecified; M81.0 Age-related osteoporosis without current pathological fracture; I51.7 Cardiomegaly; I34.0 Nonrheumatic mitral (valve) insufficiency; M25.511 Pain in right shoulder; R51.9 Headache, unspecified; R29.6 Repeated falls; Z80.7 Family history of other malignant neoplasms of lymphoid, hematopoietic and related tissues; Z80.8 Family history of malignant neoplasm of other organs or systems; Z80.42 Family history of malignant neoplasm of prostate; Z86.010 Personal history of colon polyps; Z87.440 Personal history of urinary (tract) infections; Z87.310 Personal history of (healed) osteoporosis fracture; Z98.890 Other specified postprocedural states
CPT/HCPCS: 36415; 70450; 71046; 72125; 73030; 80048; 81001; 82947; 83605; 84484; 85025; 93005; 93306; 94761; 96361; 96372; 96374; 96375; 97162; 97165; 97535; 99284; 99285; G0378; A9270; J1650; J1885; J2405; J7030

== ENCOUNTER 2023-06-08 08:17 | Outpatient (CLI) | payer MEDICARE, BC, SELFPAY ==
--- NOTE | 2023-06-08 08:45 | CRLHL7_ITS ---
For Patients: As a result of the Cures Act, medical imaging exams and procedure reports are released immediately into your electronic medical record. You may view this report before your referring provider. If you have questions, please contact your health care provider. INDICATION: Syncope and collapse. TECHNIQUE: Brain MRI without contrast. The following sequences were obtained: Sagittal T1 weighted sequence. DWI and ADC mapping sequences. Axial FLAIR and FATOU T2 weighted sequences. Susceptibility or GRE sequence. COMPARISON: Head CT from 05/06/2023. FINDINGS: No evidence of acute ischemia. No evidence of acute or chronic intracranial blood products. Scattered FLAIR hyperintensities within the supratentorial white matter, typical for chronic microvascular ischemic changes. No mass effect or herniation. No hydrocephalus or extra-axial collections. The pituitary gland, parasellar structures and optic chiasm are normal. Posterior fossa is normal. All the major intracranial vascular structures demonstrate normal flow-related signal. The orbital contents are normal. No calvarial or skull base marrow replacing process. No obstructive sinus disease. No extracranial soft tissue findings. IMPRESSION: 1. No acute infarction or other acute intracranial pathology. 2. Mild chronic microvascular ischemic changes within the supratentorial white matter. 3. No significant posterior fossa abnormalities. Dictated by Joaquín Valles MD @ 06/08/2023 11:42:00 AM (Electronically Signed)
== END 2023-06-08 08:18 | disposition home or self-care (01) ==
PROVIDERS: PCP Family Medicine; Visit Provider Family Medicine
DX: R55 Syncope and collapse (principal); I67.82 Cerebral ischemia
CPT/HCPCS: 70551

== ENCOUNTER 2023-06-19 13:20 | Emergency (ER) | payer MEDICARE, BC, SELFPAY ==
[2023-06-19 13:29] VITALS: BP 156/92; PULSE 66; RESP 16; TEMP 36.2; O2SAT 98; BMI 24.0
--- NOTE | 2023-06-19 15:00 | ED.GENADULT ---
HPI - General Adult General Chief complaint: Syncope/Fainted Stated complaint: weakness Time Seen by Provider: 06/19/23 14:18 History of Present Illness HPI narrative: This 68-year-old female comes in because of a syncopal episode that occurred early this morning. She states that she has been having syncope events that almost always occur at night. She does have some feeling of lightheadedness at times during the day. She states that she feels normal currently. This morning she was up to the bathroom and then had a collapse. She was incontinent of stool and urine but her states there was no sign of tonic clonic activity. She does not remember these events now. She has had an MRI of her brain and recently completed a Zio patch study. She does not know the results of this heart monitor but a report of brief runs of SVT or other only finding according to her primary physician. She has been taking a supplement for improving her brain function. Her states that there is a contraindication for those who have thyroid or lung issues. Related Data Home Medications Medication Instructions Recorded Confirmed cholecalciferol (vitamin D3) 50 2,000 unit PO BID 04/24/22 06/19/23 mcg (2,000 unit) capsule loratadine 10 mg tablet 10 mg PO DAILY 04/24/22 06/19/23 multivitamin 1 tab PO QDAY 04/24/22 06/19/23 omega-3 fatty acids 1,000 mg 1,000 mg PO QDAY 04/24/22 06/19/23 capsule ascorbic acid (vitamin C) 1,000 mg 1 g PO Q6H 04/25/22 06/19/23 tablet (Vitamin C) calcium carb-Ca gluc 500 mg 2 tab PO DAILY 06/03/22 06/19/23 calcium-magnesium ox-Mg gluc 250 mg tablet (Calcium Magnesium) dynamic brain 2 tab PO DAILY 06/10/22 06/19/23 acetaminophen 500 mg capsule 1,000 mg PO Q6H PRN 05/15/23 06/19/23 kalisps-cahbfmyuoavqb-lfnlwcli 250 2 tab PO Q6H PRN 05/15/23 06/19/23 mg-250 mg-65 mg tablet (Excedrin Extra Strength) Previous Rx's Medication Instructions Recorded levothyroxine 75 mcg tablet 75 mcg PO DAILY #90 tabs 04/06/23 Allergies Allergy/AdvReac Type Severity Reaction Status Date / Time Sulfa (Sulfonamide Allergy Severe Rash Verified 06/19/23 13:37 Antibiotics) sulfamethoxazole AdvReac Intermediate Full Body Verified 06/19/23 13:37 [From ] Rash trimethoprim [From ] AdvReac Intermediate Full Body Verified 06/19/23 13:37 Rash Review of Systems Status of ROS: Reports: 10 or more systems reviewed and unremarkable except as noted in History and below Narrative: Constitutional: No fevers, no weight gain or loss. Eyes: No discharge. No vision changes. HENT: No congestion, no sore throat, no ear pain. Cardiovascular: No chest pain, no palpitations. Respiratory: No shortness of breath, no wheezes, no cough. Gastrointestinal: No abdominal pain, no vomiting, no diarrhea. Genitourinary: No dysuria, no hematuria. Musculoskeletal: Normal range of motion. Skin: No rashes, no pruritis. Neurological: No dizziness, weakness, sensory change, speech change. Syncopal episode as described above. Endo/Heme/Allergies: No bruising or bleeding. No polydipsia. Pysch: no suicidality, no anxiety, no insomnia. All other systems reviewed and are negative. [facility] Medical History History of adenomatous polyp of colon (05/09/21) ?Z86.010 - Personal history of colonic polyps (ICD-10) Chronic venous hypertension with ulcer ?I87.319 - Chronic venous hypertension (idiopathic) with ulcer of unspecified lower extremity (ICD-10) ?L97.909 - Non-pressure chronic ulcer of unspecified part of unspecified lower leg with unspecified severity (ICD-10) History of pathological fracture due to osteoporosis (2016) ?Z87.310 - Personal history of (healed) osteoporosis fracture (ICD-10) Trigger finger of right thumb (03/19/20) ?M65.311 - Trigger thumb, right thumb (ICD-10) Osteoporosis (2016) ?M81.0 - Age-related osteoporosis without current pathological fracture (ICD-10) Hypothyroid ?E03.9 - Hypothyroidism, unspecified (ICD-10) Hyperlipidemia with target LDL less than 130 ?E78.5 - Hyperlipidemia, unspecified (ICD-10) Surgical History History of colonoscopy with polypectomy (05/09/21) ?Z98.890 - Other specified postprocedural states (ICD-10) ?Z86.010 - Personal history of colonic polyps (ICD-10) History of bunionectomy of both great toes ?Z98.890 - Other specified postprocedural states (ICD-10) Family History Father Colon polyps High blood pressure Lung cancer Mother Thyroid disease Osteoarthritis Non-Hodgkin lymphoma Depression Maternal Grandmother Osteoarthritis Osteoporosis Paternal Grandmother Osteoporosis Coronary artery disease Brother Family history of prostate cancer, Onset Age: 56 Social History Narrative: Exercises regularly treadmill/daily walk. . 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 2 adult children (1 child ). What is your current living situation?: I presently have a place to live Problems where you live: no known problems Problems where you live details: no known problems In the past 12 months, utilities in danger of being shut off: no In past 12 months, lack of transportation kept you from medical appts, meetings, work, or getting things needed for daily living: no In the past 12 mos, have been you worried that your food would run out before you had money to buy more?: never true In the past 12 mos, the food you bought just didn't last and you didn't have money to buy more?: never true Smoking Status: Never smoker Do you use any of these nicotine containing products: None Second hand tobacco smoke exposure: No How often do you have a drink containing alcohol: never AUDIT-C Alcohol total score: 0 Non-prescribed substance use: denies use Caffeine: Yes How often does anyone, including family, friends and others, physically hurt you: never How often does anyone, including family, friends and others, insult or talk down to you: never How often does anyone, including family, friends and others, threaten you with harm: never How often does anyone, including family, friends and others, scream or curse at you: never Little interest or pleasure in doing things: not at all Feeling down, depressed, or hopeless: not at all service: No Exam Narrative: Exam Narrative: Constitutional: Well-developed, well-nourished, no acute distress. HEENT: Normocephalic, atraumatic. Neck: Normal range of motion. Nontender. Supple. Heart: Regular. No murmurs. Normal rate. Intact distal pulses. Lungs: Clear to auscultation. No chest discomfort. No wheezes, rhonchi, or rales. Abdomen: Normal bowel sounds. Nontender. No rebound tenderness. Genitalia: Deferred. Back: No midline tenderness. Normal range of motion. Extremities: Normal range of motion. No injury. Skin: Intact. No rash. Warm. No erythema or pallor. Neurologic: No altered sensation. No weakness. Alert and oriented. Psychiatric: No suicidality. No anxiety or depression. No insomnia. Nursing notes and vitals signs are reviewed. Const: Vital Signs, click to edit/add: Vital Signs - 24 hr 06/19/23 13:29 Temperature 97.2 F L Pulse Rate [Pulse Oximeter] 66 Respiratory Rate 16 Blood Pressure [Ri ght Upper Arm] 156/92 H Pulse Oximetry 98 Oxygen Delivery Me thod Room Air Course Vital Signs Vital signs: Initial Vital Signs Temperature 97.2 F L 06/19/23 13:29 Temperature Source Temporal Artery Scan 06/19/23 13:29 Pulse Rate 66 06/19/23 13:29 Respiratory Rate 16 06/19/23 13:29 Blood Pressure 156/92 H 06/19/23 13:29 Blood Pressure Mean 113 H 06/19/23 13:29 Blood Pressure Position Sitting 06/19/23 13:29 Pulse Oximetry 98 06/19/23 13:29 Oxygen Delivery Method Room Air 06/19/23 13:29 Vital Signs Temperature 97.2 F L 06/19/23 13:29 Pulse Rate 66 06/19/23 13:29 Respiratory Rate 16 06/19/23 13:29 Blood Pressure 156/92 H 06/19/23 13:29 Pulse Oximetry 98 06/19/23 13:29 Oxygen Delivery Method Room Air 06/19/23 13:29 Temperature 97.2 F L 06/19/23 13:29 Pulse Rate 66 06/19/23 13:29 Respiratory Rate 16 06/19/23 13:29 Blood Pressure 156/92 H 06/19/23 13:29 Pulse Oximetry 98 06/19/23 13:29 Oxygen Delivery Method Room Air 06/19/23 13:29 Medical Decision Making MDM Narrative Medical decision making narrative: This patient has been having some episodes of brief loss of consciousness that occur primarily at night. She has had MRI and Zio patch studies done along with labs. No one is yet found a clear cause of what is happening for her. She does have some brief episodes of SVT. The patient states that she had frequent similar episodes of loss of consciousness when she was in her 20s. This sounds like it could of been pots syndrome. Now she is having some loss of consciousness episodes and is undergoing workup with her primary physician. At the time of her visit here she has normal vital signs and feels completely normal. I did discuss lab and imaging options here that would likely be redundant. The patient declined any further study at this time. I did have some discussion about the herbal supplement she was taking for her brain function and encouraged her to discontinue this medication as it may be contributing to her symptoms. She will follow-up with her primary physician for ongoing diagnosis and management. Discharge Plan Discharge Clinical Impression: Syncope and collapse Patient Disposition: Home w/ Parent or Adult Condition: Stable Additional Instructions: Discontinue use of the brain supplement. Follow-up with primary physician or return if symptoms are recurrent or worsening. Prescriptions: No Action cholecalciferol (vitamin D3) 50 mcg (2,000 unit) capsule 2,000 unit PO BID loratadine 10 mg tablet 10 mg PO DAILY omega-3 fatty acids 1,000 mg capsule 1,000 mg PO QDAY multivitamin Tablet 1 tab PO QDAY ascorbic acid (vitamin C) [Vitamin C] 1,000 mg tablet 1 g PO Q6H acetaminophen 500 mg capsule 1,000 mg PO Q6H PRN Excedrin Extra Strength 250-250-65 mg tablet 2 tab PO Q6H PRN dynamic brain tablet 2 tab PO DAILY Calcium Magnesium 500 mg calcium -250 mg tablet 2 tab PO DAILY levothyroxine 75 mcg tablet 75 mcg PO DAILY Qty: 90 0RF Follow Up/Referrals: Phi Gutierrez MD [Primary Care Provider] - Stand Alone Forms: [employer] Info Instructions
== END 2023-06-19 16:52 | disposition home or self-care (01) ==
LOC: ED 15:14
PROVIDERS: Emergency Provider Emergency Medicine Emergency Medical Services; PCP Family Medicine
DX: R55 Syncope and collapse (principal)
CPT/HCPCS: 95992; 99283; 99284

== ENCOUNTER 2023-06-25 12:33 | Outpatient (CLI) | payer MEDICARE, BC, SELFPAY ==
--- NOTE | 2023-06-25 13:00 | CRLHL7_ITS ---
For Patients: As a result of the Century Cures Act, medical imaging exams and procedure reports are released immediately into your electronic medical record. You may view this report before your referring provider. If you have questions, please contact your health care provider. DXA BONE MINERAL DENSITY STUDY Reason for exam: Personal history of (healed) osteoporosis fracture. Current height (in): 66.0. Weight (lb): 139.0. Menopause age: 54. Ethnicity: White. 1. Have you had a previous hip or vertebral fracture? No. 2. Have you had any fractures during your adult life which did not result from significant trauma (e.g., auto accident)? Yes. 3. Did either of your parents have a hip fracture? No. 4. Do you smoke? No. 5. Have you ever taken Glucocorticoids? No. 6. Do you have rheumatoid arthritis? No. 7. Do you have secondary osteoporosis? Yes. 8. Do you drink 3 or more alcoholic drinks per day? No. 9. Are you being treated for osteoporosis? Yes. 10. Have you ever taken any of the following medications: Actonel, Evista, Fosamax, Miacalcin, Reclast, Boniva, Forteo, HRT (i.e. estrogen/hormone therapy), Protelos, Prolia, Vitamin D, Calcium, other ??? please specify. ANSWER: Yes, vitamin D, calcium. 11. Do you have any of the following medical conditions: Anorexia or bulimia, asthma or emphysema, end stage renal disease, hyperparathyroidism, any seizure disorders, cancer, inflammatory bowel diseases, hysterectomy, other ??? please specify. ANSWER: No. 12. What was your maximum height (inches)? 67. 13. Do you perform weight bearing exercise regularly? Yes. 14. Do you regularly consume dairy products? Yes. 15. Do you drink caffeinated beverages? Yes. 16. At what age did your period start? 15. 17. Are you premenopausal? No. 18. How many full term pregnancies have you had? 2. 19. Have you ever missed your period for more than 6 months in a row (not including or menopause)? Not provided. TECHNIQUE: Bone mineral density study was performed using the [employer]. FINDINGS: The results of the study expressed as bone mineral density (BMD) are as follows: Lumbar spine L1 to L4: BMD: 0.864 g/cm2. T-score: -1.7. Z-score: 0.3. Neck Left: BMD: 0.553 g/cm2. T-score: -2.7. Z-score: -1.0. Right: BMD: 0.518 g/cm2. T-score: -3.0. Z-score: -1.3. Total Left: BMD: 0.699 g/cm2. T-score: -2.0. Z-score: -0.6. Right: BMD: 0.628 g/cm2. T-score: -2.6. Z-score: -1.2. IMPRESSION: Osteoporosis. *Comparison exams done prior to 12/2019 were performed on different unit, [employer]. COMPARISON: Compared with scan of 05/02/2021, the bone mineral density has increased by 1.5 percent at the spine and increased by 0.4 percent at the hip. Phi Butler M.D. Diagnostic Radiologist [email or web address] ELENA/renay / be/Dictated by: Phi Butler MD @ 06/30/2023 12:52:00 PM (Electronically Signed)
== END 2023-06-25 12:34 | disposition home or self-care (01) ==
LOC: RAD 12:34
PROVIDERS: PCP Family Medicine; Visit Provider Family Medicine
DX: M81.0 Age-related osteoporosis without current pathological fracture (principal)
CPT/HCPCS: 77080

== ENCOUNTER 2024-01-13 17:47 | Outpatient (REF) | payer MEDICARE, BC, SELFPAY ==
--- OUTSIDE RECORDS SUMMARY | 2024-01-13 17:51 | XMS_ITS | Clinical Summary ---
Author Organization [facility] Address [place], [place] [address] Care Team Providers Care Manager Social Name Role Phone Pcp, No Primary Care Provider Unavailabl e Allergies Active Allergy Reactions Criticality Noted Date Comments Sulfa (Sulfonamide Antibiotics) Hives Medications Medication Sig Dispensed Refills Start Date End Date Status MULTIVITAMIN TAB take 1 tablet by oral route once daily with food 0 Active calcium carbonate-vitamin D3, 600 mg-400 unit, (CALCIUM 600 + D) tablet Take 3 tablets by mouth once daily. 0 02/10/2012 Active glucosamine HCl 1,500 mg tab Take 1 tablet by mouth twice daily 0 02/22/2014 Active wpdge-7i-zmw-epa-fish oil 1,400 mg/5 mL liqd Take 1400 mg by mouth twice daily. 0 02/22/2014 Active ascorbic acid (VITAMIN C) 1,000 mg tablet Take 1 tablet by mouth three times daily. 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 90 tablet 3 02/27/2015 Active fexofenadine (MARIO) 180 mg tablet Take 1 tablet by mouth once daily with a meal. 0 05/03/2015 Active azithromycin (ZITHROMAX) 250 mg tabletIndications:Acut e maxillary sinusitis, recurrence not specified Take 2 tablets with next meal and one tablet days 2-5 6 tablet 0 05/03/2015 Active benzonatate (TESSALON PERLES) 100 mg capsuleIndications:Acu te maxillary sinusitis, recurrence not specified Take 1 capsule by mouth 3 times daily if needed for Cough. 30 capsule 0 05/03/2015 Active lamoTRIgine (LAMICTAL) 100 mg tablet Take 100 mg by mouth two times daily. 12/02/2023 Active levETIRAcetam (KEPPRA) 500 mg tablet Take 500 mg by mouth two times daily. 12/12/2023 Active durable medical equipment (DME)Indications:Injur y of right foot, initial encounter SQUARED TOE POST OP SHOEMELY, REF: [phone] 01/05/2024 Active Active Problems Problem Noted Date Diagnosed Date Acne 02/11/2013 Mixed hyperlipidemia 11/24/2007 OSTEOPENIA 11/24/2007 Chest pain, unspecified 11/24/2007 Overview: atypical, likely GI related. Unspecified hypothyroidism Resolved Problems Problem Noted Date Diagnosed Date Resolved Date Osteoporosis, unspecified 12/16/2007 Depression 11/24/2007 Encounters Date Type Department Care Team Description 01/05/2024 4:45 PM CDT Ancillary Procedure [facility] [address] [place] [address] 01/05/2024 4:00 PM CDT Office Visit [facility] [address] [place] [address] Isaias Elder, DPSocrates Consult (Right foot pain) 01/05/2024 Travel from Last 3 Months Immunizations Name Administration Dates Next Due Td (Age >=7 Years) 08/02/1996 Tdap 11/16/2006 11/16/2016 Family History Medical History Relation Name Comments Good Health Brother Cancer-prostate Father lung ca ncer Hyperlipidemia Father Hypertension Father Other Father multiple colon polyps Osteoporosis Maternal Grandmother Cancer Mother non hodgkins ly mphoma Osteoporosis Mother Psychiatric illness Mother Depressi on Osteoporosis Paternal Grandmother Cancer-breast No Family History Relation Name Status Comments Brother Father Alive Maternal Grandmother Mother Paternal Grandmother Social History Tobacco Use Types Packs/Day Years Used Date Smoking Tobacco: Never Smokeless Tobacco: Never Tobacco Cessation:Counseling Given: Yes Alcohol Use Standard Drinks/Week Comments No 0 (1 standard drink = 0.6 oz pur e alcohol) Sex and Gender Information Value Date Recorded Sex Assigned at Not on file Gender Identity Not on file Sexual Orientation Not on file Obstetrics History Para Term AB IAB SAB Ectopic Multiple Livin g Live Births 2 2 2 Date Outcome GA Total Labor Labor/2nd/3rd Weight Sex Type Anes PTL Ingris A1 A5 Name Clin Para Para Last Filed Vital Signs Vital Sign Reading Time Taken Comments Blood Pressure 147/107 01/05/2024 4:27 PM CDT Pulse 62 01/05/2024 4:27 PM CDT Temperature 36.7 ??C (98.1 ??F) 05/03/2015 11:00 AM C DT Respiratory Rate 16 11/16/2006 8:15 AM CDT Oxygen Saturation 97% 01/05/2024 4:27 PM CDT Inhaled Oxygen Concentration - - Weight 66.2 kg (146 lb) 01/05/2024 4:27 PM CDT Height 167.6 cm (5' 6) 05/03/2015 11:00 AM CDT Body Mass Index 23.57 05/03/2015 11:00 AM CDT Plan of Treatment Upcoming Encounters Date Type Department Care Team (Late st Contact Info) Description 02/02/2024 3:45 PM CDT Office Visit [facility] [address] [place] [address] Isaias Elder DPM [address] [place] [address] 05/02/2024 8:20 AM CDT Ancillary Procedure [facility] [address] [place] [address] 05/02/2024 9:00 AM CDT Office Visit [facility] [address] [place] [address] Deyanira Marie MD [address] [place] [address] Health Maintenance Due Date Last Done Comments Depression screening for age 12+ 1968 BMI (ht and wt on same day) for age 18+ 1974 Hepatitis C screening for ag e 18-79 1974 Zoster (shingles) series for age 50+ (1 of 2) 2006 Colonoscopy through age 75 12/18/2015 12/17/2010 Mammogram for age 45-75 02/09/2016 02/09/20 15, 02/07/2014, 02/02/2013, Additional history exists Tetanus booster 11/16/2016 11/16/2006, 08/02/1996 Lipids for age 45-75 02/09/2020 02/08/2015, 02/07/2014, 02/02/2013, Additional history exists DEXA/DXA scan for age 65+ 03/30/20212013, 12/19/2011, 12/07/2009, Additional history exists Medicare Wellness for age 65+ 2021 Pneumococcal series for age 65+ (1 of 1 - PCV) 2021 COVID-19 vaccine series (2022-24 season) 2023 04/10/2022, 11/14/2021, 04/11/2021, Additional history exists Influenza for age 65+ 03/06/2024 Tdap Completed 11/16/2006 Procedures Procedure Name Priority Date/Time Associated Diagnosis Comments XR FOOT 3 VIEWS RIGHT Routine 01/05/2024 4:37 PM CDT Hammertoe of second toe of right foot Injury of right foot, initial encounter XR MAMMO BILAT SCREEN FFDM (IA) Routine 02/08/2015 8:04 AM CDT Other screening mammogram LIPID PANEL W REFLEX MEASURED LDL Routine 02/08/2015 7:52 AM CDT HYPERLIPIDEMIA MIXED XR DXA BONE DENSITY 2 SITES AXIAL Routine 02/07/2014 8:41 AM CDT OSTEOPENIA from Last 3 Months or Most Recently Relevant to Health Maintenance Results * XR FOOT 3 VIEWS RIGHT (01/05/2024 4:37 PM CDT) Anatomical Region Laterality Modality FEET, FOOT R Computed Radiogr aphy 01/06/2024 4:22 PM CDT Narrative 01/06/2024 4:22 PM CDT For Patients: ??As a result of the Century Cures Act, medical imaging exams and procedure reports are released immediately into your electronic medical record. ??You may view this report before your referring provider. ??If you have questions, please contact your health care provider. Indication: Injury, pain, hammertoe Technique: Right foot 3 views Comparison: None Findings: Plantar calcaneal spur is present. Postop changes of distal 1st metatarsal osteotomy with intact fixation screw. Second hammertoe deformity. Midfoot alignment maintained. No acute fracture. Impression: No sign of acute injury. Second hammertoe. Dictated by Phi Butler MD @ 01/06/2024 4:22:43 PM (Electronically Signed) Procedure Note Phi Butler MD - 01/06/2024 For Patients: As a result of the Cures Act, medical imagingexams and procedure reports are released immediately into your electronicmedical record. You may view this report before your referring provider.If you have questions, please contact your health care provider. Indication: Injury, pain, hammertoe Technique: Right foot 3 views Comparison: None Findings: Plantar calcaneal spur is present. Postop changes of distal 1st metatarsalosteotomy with intact fixation screw. Second hammertoe deformity. Midfootalignment maintained. No acute fracture. Impression: No sign of acute injury. Second hammertoe. Dictated by Phi Butler MD @ 01/06/2024 4:22:43 PM (Electronically Signed) Isaias Elder DPSocrates GENERAL IMAGING * XR MAMMO BILAT SCREEN FFDM (02/08/2015 8:04 AM CDT) Anatomical Region Laterality Modality BREASTS, Breast Left, Breast Right Bilateral Mammography Impressions 02/08/2015 1:09 PM CDT ??There is no radiographic evidence for malignancy. ??Recommend annual mammograms. A lay language report of this examination will be provided to the patient. MAMMOGRAM ASSESSMENT: ??ACR 2 Benign Narrative 02/08/2015 1:09 PM CDT XR MAMMO BILAT SCREEN FFDM [G0202.0] CLINICAL HISTORY: ??This is an asymptomatic 59 y.o. patient. INDICATION FOR EXAM: Mammogram Screening. TECHNIQUE: CC & MLO views were obtained. ??This digital study was evaluated with the assistance of Computer-Aided Detection. COMPARISON FILMS: Yes 02/07/14 [facility] 02/02/13 [facility] FINDINGS: ??Mammographically, the breast tissue has scattered fibroglandular densities. ??No suspicious masses or microcalcifications. ?? Benign appearing mass(es) within right breast. Kierra Starks NP MAMMO * (ABNORMAL) LIPID PANEL W REFLEX MEASURED LDL (02/08/2015 7:52 AM CDT) CHOLESTEROL,TOTAL 255(H) 100 - 199 mg/dL 02/08/2015 9:01 AM CDT [facility] TRIGLYCERIDES 78 <150 mg/dL 02/08/2015 9:01 AM CDT [facility] HDL CHOLESTEROL 72 >40 mg/dL 02/08/2015 9:01 AM CDT [facility] NON-HDL CHOLESTEROL 183(H) <145 mg/dl 02/08/2015 9:01 AM CDT [facility] CHOL/HDL RATIO 3.54 <4.50 02/08/2015 9:01 AM CDT [facility] LDL CHOLESTEROL 167(H) <=130 mg/dL 02/08/2015 9:01 AM CDT [facility] PATIENT STATUS FASTING 02/08/2015 9:01 AM CDT [facility] Blood specimen (specimen) BLOOD SPECIMEN / Unknown Venipuncture / Unknown 02/08/2015 7:52 AM CDT 02/08/2015 7:53 AM CDT Kierra Starks NP CHEMISTRY [facility] [address] [place] [address], * (ABNORMAL) XR DXA BONE DENSITY 2 SITES (02/07/2014 8:41 AM CDT) Anatomical Region Laterality Modality Spine, HIPS, HIPL, HIPR Other Narrative 03/01/2014 1:02 PM CDT Please see scanned document for results of this study. Procedure Note Jeanne Billingsley PA - 03/01/2014 Please see scanned document for results of this study. Kierra Starks NP DEXA from Last 3 Months or Most Recently Relevant to Health Maintenance Care Teams Manager Social Relationship Specialty Start Date End Date Pcp, No . PCP - General 06/11/18
[2024-01-15 17:27] LABS: Lamotrigine 7.5 ug/mL (3.0-15.0)
== END 2024-01-13 17:48 | disposition home or self-care (01) ==
LOC: NPINS 17:47
PROVIDERS: PCP Family Medicine; Visit Provider Psychiatry & Neurology Neurology
DX: G40.909 Epilepsy, unspecified, not intractable, without status epilepticus (principal)
CPT/HCPCS: 80175

== ENCOUNTER 2024-06-09 07:55 | Outpatient (CLI) | payer MEDICARE, BC, SELFPAY ==
--- OUTSIDE RECORDS SUMMARY | 2024-06-09 08:01 | XMS_ITS | Clinical Summary ---
Author Organization [employer] [facility] Address [place], [place] [address] Care Team Providers Care Manager Ambulatory Name Role Phone Deyanira Marie MD Primary Care Prov ider Allergies Active Allergy Reactions Criticality Noted Date Comments Sulfa (Sulfonamide Antibiotics) Hives Medications Medication Sig Dispensed Refills Start Date End Date Status MULTIVITAMIN TAB take 1 tablet by oral route once daily with food 0 Active calcium carbonate-vitamin D3, 600 mg-400 unit, (CALCIUM 600 + D) tablet Take 3 tablets by mouth once daily. 0 02/10/2012 Active ohoes-7y-jfe-epa-fish oil 1,400 mg/5 mL liqd Take 1400 mg by mouth twice daily. 0 02/22/2014 Active ascorbic acid (VITAMIN C) 1,000 mg tablet Take 1 tablet by mouth three times daily. 0 02/22/2014 Active fexofenadine (MARIO) 180 mg tablet Take 1 tablet by mouth once daily with a meal. 0 05/03/2015 Active lamoTRIgine (LAMICTAL) 100 mg tablet Take 100 mg by mouth two times daily. 12/02/2023 Active levothyroxine (SYNTHROID) 75 mcg tabletIndications:Hypot hyroidism, unspecified type Take 1 Tablet (75 mcg) by mouth once daily. 90 Tablet 3 05/02/2024 Active rosuvastatin (CRESTOR) 10 mg tabletIndications:Mixed hyperlipidemia Take 1 Tablet (10 mg) by mouth at bedtime. 90 Tablet 3 05/03/2024 Active Hospital, Clinic, or Other Facility Administered Medication Ordered Dose Route Frequency Start Date End Date Status zoledronic acid in mannitol & water (RECLAST) 5 mg/100 mL pgbk 100 mLIndications:Osteoporosis, unspecified osteoporosis type, unspecified pathological fracture presence 100 mL IV ONE TIME 05/19/2024 05/19/2024 Ended Active Problems Problem Noted Date Diagnosed Date Osteoporosis 05/03/2024 Acne 02/11/2013 Mixed hyperlipidemia 11/24/2007 OSTEOPENIA 11/24/2007 Chest pain, unspecified 11/24/2007 Overview (11/24/2007): atypical, likely GI related. Unspecified hypothyroidism Resolved Problems Problem Noted Date Diagnosed Date Resolved Date Osteoporosis, unspecified 12/16/2007 Depression 11/24/2007 Encounters Date Type Department Care Team Description 06/06/[address] [address] Isaias Elder DPM Surgery Scheduled (09/05/24) 05/19/2024 10:00 AM CLINICAL AUDITOR Nurse/Clinic Staff Only [address] [address] Infusion Therapy (Reclast) 05/19/2024 Travel 05/14/2024 Travel 05/03/[address] [address] Deyanira Marie MD Appointment (reclast) 05/03/[address] [address] Deyanira Marie MD Refill Request 05/02/2024 9:00 AM CDT Office Visit [address] [address] Deyanira Marie MD Medicare ANNUAL (subsequent) Visit (69 year old medicare wellness ); Medication Management; Lab; Establish Care 05/02/2024 8:20 AM CDT Ancillary Procedure [facility] [address] [place] [address] 05/01/2024 Travel from Last 3 Months Immunizations Name Administration Dates Next Due COVID-19 VACCINE SPIKEVAX (M ODERNA 50MCG/0.5ML) 12YO+ PFS 04/21/2023 Influenza, High-dose Inactivated 03/09/2024 Influenza, High-dose Quadriv alent Inactivated 03/31/2023,03/25/2022,04/02/2021 Influenza, IIV4 (=>6mos) MDV 03/15/2020,04/20/20 19 Pneumococcal Poly,23-Valent (Pneumovax) 03/11/20 18 Pneumococcal conj 13-Valent (Prevnar 13) 021 RSV, Bivalent Vaccine Recons tituted (Abrysvo 120MCG/0.5mL) 04/21/2023 Td (Age >=7 Years) 08/02/1996 Tdap 03/04/2017,11/16/2006 11/16/2016 Zoster (Shingrix-RZV, recombinant) 09/06/2018, Family History Medical History Relation Name Comments [...] drink = 0.6 oz pur e alcohol) PHQ-2 Answer Date Recorded PHQ-2 TOTAL SCORE 0 05/02/2024 Social Connections Answer Date Recorded Do you often feel lonely or isolated from those around you? 0 05/01/2024 Financial Resource Strain Answer Date R ecorded Difficulty of Paying Living Expenses 3 05/02/2024 Difficulty of Paying Living Expenses Not on file 05/02/2024 Food Insecurity Answer Date Recorded Do you worry your food will run out before you are able to buy more? 1 05/01/2024 Transportation Needs Answer Date Record ed Does lack of transportation keep you from medica l appointments? 1 05/01/2024 Does lack of transportation keep you from work, meetings or getting things that you need? 1 05/01/2024 Housing Stability Answer Date Recorded What is your housing situation today? 1 05/01/2024 Sex and Gender Information Value Date Recorded [...] Sign Reading Time Taken Comments Blood Pressure 146/77 05/19/2024 10:44 AM CLINICAL AUDITOR Pulse 60 05/19/2024 10:44 AM CLINICAL AUDITOR Temperature 36.7 C (98 F) 05/19/2024 10:06 AM CLINICAL AUDITOR Respiratory Rate 16 05/19/2024 10:44 AM CLINICAL AUDITOR Oxygen Saturation 96% 05/19/2024 10:44 AM CLINICAL AUDITOR Inhaled Oxygen Concentration - - Weight 64 kg (141 lb) 05/02/2024 8:57 AM CDT Height 163 cm (5' 4.17) 05/02/2024 8:57 AM CDT Body Mass Index 24.07 05/02/2024 8:57 AM CDT Plan of Treatment Health Maintenance Due Date Last Done Comments Hepatitis C screening for ag e 18-79 1974 Colonoscopy through age 75 12/18/2015 12/17/2010 BMI (ht and wt on same day) for age 18+ 05/02/2025 05/02/2024 Mammogram for age 45-75 05/02/2025 05/02/20 24, 02/08/2015, 02/07/2014, Additional history exists Depression screening for age 12+ 05/03/2025 05/03/2024, 05/03/2024, 05/02/2024 Medicare Wellness for age 65+ 05/03/2025 05/02/2024 Pneumococcal series for age 65+ (3 of 3 - PPSV23 or PCV20) 04/11/2026 04/11/2021, 03/11/2018 Tetanus booster 03/04/2027 03/04/2017, 11/03, 08/02/1996 Lipids for age 45-75 05/02/2029 05/02/2024, 02/08/2015, 02/07/2014, Additional history exists Tdap Completed 03/04/2017, 11/16/2006 Zoster (shingles) series for age 50+ Completed 09/06/2018, 03/11/2018 DEXA/DXA scan for age 65+ Completed 2022, 02/07/2014, 12/19/2011, Additional history exists COVID-19 vaccine series Completed 03/09/20, 04/21/2023, 04/10/2022, Additional history exists Influenza for age 65+ Completed 03/09/2024 , 03/31/2023, 03/25/2022, Additional history exists Procedures Procedure Name Priority Date/Time Associated Diagnosis Comments CREATININE Add On 05/02/2024 9:44 AM CDT Osteoporosis, unspecified osteoporosis type, unspecified pathological fracture presence PLATELET COUNT Routine 05/02/2024 9:44 AM CDT Screening for metabolic disorder ALT (SGPT) Routine 05/02/2024 9:44 AM CDT Screening for metabolic disorder AST (SGOT) Routine 05/02/2024 9:44 AM CDT Screening for metabolic disorder TSH WITH REFLEX Routine 05/02/2024 9:44 AM CDT HYPOTHYROIDISM ACQUIRED UNSPEC LIPID PANEL W REFLEX MEASURED LDL Routine 05/02/2024 9:44 AM CDT Screening for cardiovascular condition XR MAMMO CHRISTINE BILAT SCREEN Routine 05/02/2024 8:37 AM CDT Visit for screening mammogram SCAN-BONE DENSITOMETRY DEXA 06/25/2023 12:00 AM CLINICAL AUDITOR from Last 3 Months or Most Recently Relevant to Health Maintenance Results * TSH WITH REFLEX (05/02/2024 9:44 AM CDT) TSH W/REFLEX TO FT4 1.74 0.40 - 4.50 mIU/L [facility] Blood BLOOD SPECIMEN / Unknown 05/02/2024 9:44 AM CDT 05/02/2024 9:45 AM CDT Narrative [facility] - 05/05/2024 12:51 PM CDT FASTING:YES FASTING: YES Deyanira Marie MD CHEMISTRY [employer] [facility] [address] [place] [address], [facility] [address] [place] [address] * (ABNORMAL) LIPID PANEL W REFLEX MEASURED LDL [[id number]] (05/02/2024 9:44 AM CDT) CHOLESTEROL, TOTAL 288(H) <200 mg/dL [facility] HDL CHOLESTEROL 96 > OR = 50 mg/dL [facility] TRIGLYCERIDES 96 <150 mg/dL [facility] [place] LDL-CHOLESTEROL 171(H) mg/dL (calc) [facility] Comment: Reference range: <100 Desirable range <100 mg/dL for primary prevention; <70 mg/dL for patients with CHD or diabetic patients with > or = 2 CHD risk factors. LDL-C is now calculated using the Mariano-Emelia calculation, which is a validated novel method providing better accuracy than the Friedewald equation in the estimation of LDL-C. Mariano CHOU et al. SHANIKA. 2013;310(19): 9914-7362 (http://education.[employer].Forseva/faq/PQE152) CHOL/HDLC RATIO 3.0 <5.0 (calc) [facility] NON HDL CHOLESTEROL 192(H) <130 mg/dL (calc) [facility] Comment: For patients with diabetes plus 1 major ASCVD risk factor, treating to a non-HDL-C goal of <100 mg/dL (LDL-C of <70 mg/dL) is considered a therapeutic option. Blood BLOOD SPECIMEN / Unknown 05/02/2024 9:44 AM CDT 05/02/2024 9:45 AM CDT Narrative [facility] - 05/05/2024 12:51 PM CDT FASTING:YES FASTING: YES Deyanira Marie MD CHEMISTRY [facility] [address] [place] [address], [place] [phone] [facility] [address] [place] [address] * PLATELET COUNT (05/02/2024 9:44 AM CDT) PLATELET COUNT 361 140 - 400 Thousand/u L [facility] Blood BLOOD SPECIMEN / Unknown 05/02/2024 9:44 AM CDT 05/02/2024 9:45 AM CDT Narrative [facility] - 05/05/2024 12:51 PM CDT FASTING:YES FASTING: YES Deyanira Marie MD HEMATOLOGY Performing Organization Address City/[facility]/ZIP Co de Phone Number [facility] [address] [facility] [place] [address], [place] [phone] [facility] [address] [facility] [place] [place] [address] * CREATININE (05/02/2024 9:44 AM CDT) CREATININE 0.81 0.50 - 1.05 mg/dL [facility] EGFR 79 > OR = 60 mL/min/1.73 m2 [facility] Blood BLOOD SPECIMEN / Unknown 05/02/2024 9:44 AM CDT 05/03/2024 6:14 PM CDT Deyanira Marie MD CHEMISTRY [facility] [address] [place] [address], [place] [phone] [facility] [address] [facility] [place] [address] * ALT (SGPT) (05/02/2024 9:44 AM CDT) ALT 17 6 - 29 U/L [facility] Blood BLOOD SPECIMEN / Unknown 05/02/2024 9:44 AM CDT 05/02/2024 9:45 AM CDT Narrative [facility] - 05/05/2024 12:51 PM CDT FASTING:YES FASTING: YES Deyanira Marie MD CHEMISTRY [facility] [address] [facility] [place] [address], [facility] [address] [facility] [place] [address] * AST (SGOT) (05/02/2024 9:44 AM CDT) AST 26 10 - 35 U/L [facility] [place] Blood BLOOD SPECIMEN / Unknown 05/02/2024 9:44 AM CDT 05/02/2024 9:45 AM CDT Narrative [facility] - 05/05/2024 12:51 PM CDT FASTING:YES FASTING: YES Deyanira Marie MD CHEMISTRY [facility] [address] [facility] [address], [place] [phone] [facility] [address] [place] [address] * XR MAMMO CHRISTINE BILAT SCREEN (05/02/2024 8:37 AM CDT) Anatomical Region Laterality Modality BREASTS, Breast Left, Breast Right Bilateral Mammography Impressions 05/03/2024 3:46 PM CDT There is no radiographic evidence for malignancy. Recommend annual mammograms. MAMMOGRAM ASSESSMENT: ACR 1 Negative PATIENTS: You will also receive a letter with your examination results in an easy to read format. If you have questions about your results, please contact your referring provider. Narrative 05/03/2024 3:46 PM CDT For Patients: As a result of the Century Cures Act, medical imaging exams and procedure reports are released immediately into your electronic medical record. You may view this report before your referring provider. If you have questions, please contact your health care provider. XR MAMMO CHRISTINE BILAT SCREEN [[id number]] CLINICAL HISTORY: This is an asymptomatic 69 y.o. patient. INDICATION FOR EXAM: Mammogram Screening. TECHNIQUE: CC & MLO views were obtained. This study was evaluated with the assistance of Computer-Aided Detection. Breast Tomosynthesis was used in interpretation. COMPARISON FILM: Yes 02/08/15 [facility] 02/07/14 [facility] FINDINGS: There are scattered areas of fibroglandular density. There are no dominant masses, suspicious micro calcifications or areas of architectural distortion. Deyanira Marie MD MAMMO * SCAN-BONE DENSITOMETRY DEXA (06/25/2023 12:00 AM CLINICAL AUDITOR) Anatomical Region Laterality Modality Other Scanner OTHER from Last 3 Months or Most Recently Relevant to Health Maintenance Care Teams Manager Ambulatory Relationship Specialty Start Date End Date Deyanira Marie MD [address] [place] [address] PCP - General Family Practice 10/28/24
--- NOTE | 2024-06-09 08:08 | W.ANESCHARGE ---
Anesthesia Charges Start Date/Time Anesthesia Start Date: 06/09/24 Anesthesia Start Time: 08:43 Stop Date/Time Anesthesia Stop Date: 06/09/24 Anesthesia Stop Time: 09:11
--- NOTE | 2024-06-09 09:16 | W.ANESCHARGE ---
Anesthesia Charges Start Date/Time Anesthesia Start Date: 06/09/24 Anesthesia Start Time: 08:43 Stop Date/Time Anesthesia Stop Date: 06/09/24 Anesthesia Stop Time: 09:11
== END 2024-06-09 07:56 | disposition home or self-care (01) ==
LOC: OP CLINIC 07:55
PROVIDERS: PCP Student in an Organized Health Care Education/Training Program; Visit Provider Surgery
DX: D12.0 Benign neoplasm of cecum (principal); Z86.0100 Personal history of colon polyps, unspecified
CPT/HCPCS: 00811; 45385; 88305; J2704

== ENCOUNTER 2024-09-05 06:04 | Day surgery (SDC) | payer MEDICARE, BC, SELFPAY ==
[2024-09-05 06:15] VITALS: BP 159/96; PULSE 105; RESP 18; TEMP 36.6; O2SAT 98; BMI 24.5
[2024-09-05] MEDS: SODIUM CHLORIDE 0.9 % (FLUSH) 10 ML SYRINGE IVF (06:39)
[2024-09-05] MEDS: LACTATED RINGERS 1000 ML 1,000 ML 100 ML IV (06:40)
[2024-09-05] MEDS: CEFAZOLIN 2 GM INJ IVP (07:25)
[2024-09-05] MEDS: BUPIVACAINE 0.25% 30 ML INJECTION (07:30)
[2024-09-05 09:35] VITALS: BP 121/65; PULSE 66; RESP 16; TEMP 36.7; O2SAT 95
--- NOTE | 2024-09-05 09:35 | W.ANESCHARGE ---
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
[2024-09-05 09:45] VITALS: BP 128/76; PULSE 70; RESP 18; O2SAT 96
[2024-09-05 10:00] VITALS: BP 149/94; PULSE 72; RESP 16; O2SAT 97
[2024-09-05 10:15] VITALS: BP 148/88; PULSE 68; RESP 18; TEMP 36.7; O2SAT 97
--- NOTE | 2024-09-05 10:52 | W.PM.PODPROC ---
Date of Procedure: 09/05/24 Surgeon: Isaias Elder DPM Pre-op Diagnosis: 1. Hammertoe 2nd digit right 2. Plantar plate tear 2nd MPJ right 3. Metatarsalgia with capsulitis 2nd MPJ right Post-op Diagnosis: 1. Hammertoe 2nd digit right 2. Plantar plate tear 2nd MPJ right 3. Metatarsalgia with capsulitis 2nd MPJ right Type of Procedure: 1. Yunior osteotomy 2nd metatarsal right 2. Hammertoe correction 2nd right 3. Plantar plate repair 2nd MPJ right Indications: Patient seen in clinic for worsening hammertoe deformity and pain at the MPJ and plantar aspect of the metatarsal. She has failed conservative treatment and wishes to proceed with surgical care. I reviewed the procedure, recovery, expectation potential complications. These include but not limited to: Poor wound healing, infection, under correction, over correction, continued pain, nonunion, delayed union, malunion, potential need for future surgery, deep venous thrombosis, pulmonary embolism, complex regional pain syndrome, possible . She understands risks and written consent was obtained. Site was marked. Procedure Description: Patient brought the operating room placed supine position on operating table. IV sedation was initiated local anesthetic injected into the right foot. She was prepped and draped in a sterile fashion. Standard time-out protocol followed. Right foot was exsanguinated and the tourniquet inflated. Linear incision was made over the 2nd metatarsophalangeal joint. The incision was carried down through skin subcutaneous tissues. Z-lengthening performed on the extensor digitorum longus tendon and the extensor digitorum brevis tendon was transected. Linear capsular incision was made. Capsular tissues were hypertrophied and inflamed with some granular tissue. The medial capsule was released. Sagittal saw was then used to create a Yunior osteotomy. Capital fragment transposed proximally and pinned. Evaluation of the plantar plate showed chronic tearing at the attachment to the proximal phalangeal base. Scalp was used to excise the abnormal capsular tissue back to a healthy capsule. The flexor tendon was identified and protected. A bone rasp was used to freshen the plantar aspect of the proximal phalangeal base. Guide pin was then placed from dorsal medial to plantar lateral with a through the phalangeal base and then also from dorsal lateral to plantar medial. Using a [employer] suture Passer FiberTape was passed through the medial plantar plate and a 2nd suture passed through the lateral plantar plate. The medial suture tape was passed through the medial plantar hole and the lateral suture tape through the lateral plantar hole. The capital fragment of the metatarsal head was then translated medial and carefully rotated into appropriate alignment to help straighten the 2nd toe to prevent further medial drift. Once positioned appropriately and checked under C-arm 3.0 mm cortical screw placed and a 2nd 2.0 mm cannulated screw was then placed. Dorsal overhang was removed. Position was found to be optimal. The metatarsophalangeal joint was then held in reduced position and the suture tape tied tightly on the dorsal proximal phalanx base. This helped the metatarsophalangeal joint and perfect alignment. C-arm confirmed position. A 2nd linear incision placed over the PIPJ. Incision carried down through skin subcutaneous tissues. Transverse incision made through the extensor tendon and medial and collateral ligaments. The IP joint exposed. Oscillating saw was used to remove the head of the proximal phalanx and the base of the middle phalanx. Using manufacture's technique guide a retro fuse screw was then inserted using this technique. Excellent compression noted across the fusion site. C-arm confirmed excellent position. Wound was irrigated normal sterile saline. Extensor tendon at the PIPJ repaired with 4-0 Vicryl. With the MTPJ reduce the midlateral joint capsule was tightened with 4-0 Vicryl. Remainder of the capsule was repaired dorsally with 4-0 Vicryl. The extensor digitorum longus tendon Z-lengthening was repaired with 4-0 Vicryl. Subcutaneous tissues reapproximated with 4-0 Monocryl. Skin closed with 4-0 Prolene. Sterile dressing was applied. Normal capillary fill time returned all digits. She was transferred from OR to PACU vital signs stable vascular status intact. She was discharged per same-day surgery. She was given oxycodone for pain. She is heel weight-bearing in surgical shoe with walker. She will follow-up in 2 days. Anesthesia: MAC and local Hemostasis: ankle Estimated blood loss (mL): 2 Implants: Ar[employer] 3.0 cortical screw x1, 2.0 cannulated screw x1, retro fuse screw x1, FiberTape. Specimens: none sent Disposition: same day
== END 2024-09-05 10:19 | disposition home or self-care (01) ==
LOC: OR 06:07
PROVIDERS: PCP Student in an Organized Health Care Education/Training Program; Visit Provider Podiatrist
PROC: (CPT 28485; principal; 2024-09-05 07:15)
PROC: (CPT 28285; 2024-09-05 07:15)
DX: M20.41 Other hammer toe(s) (acquired), right foot (principal); S93.524A Sprain of metatarsophalangeal joint of right lesser toe(s), initial encounter; M77.51 Other enthesopathy of right foot and ankle; M77.41 Metatarsalgia, right foot
CPT/HCPCS: 28285; 28308; 28899; 01470; 73620; 76000; C1713; J0665; J0690; J1100; J2250; J2405; J2704; J3010; J3490; J7120

== ENCOUNTER 2025-04-27 10:00 | Outpatient (RCR) | payer MEDICARE, BC, SELFPAY ==
--- NOTE | 2025-03-17 08:52 | PT.OPEX ---
PT [facility] Outpatient Eval PT [facility] Outpatient Eval Start: 03/17/25 07:21 Freq: Status: Active Protocol: Document 03/17/25 07:23 CRP (Rec: 03/17/25 08:52 CRP [id number]) E-signed By Phani Salguero PT Physical Therapy Outpatient Evaluation Insurance Information Recert Due Date 06/15/25 Insurance Name Medicare B Medical Diagnosis Lumbar Spondylolisthesis Dorsalgia Thoracic kyphosis, scoliosis Referring MD Dr Garcia Subjective Subjective Pt co LBP, pain along ribs on both sides and pain into the L gluteals. Can have times of no problems and then other times she will have shooting higher levels of pain. Does walk about 4 miles per day. Does have exer she does that she learned in PT in the past. Pt notes that the pains she has do not always go together. Gluteals can hurt with walking, bending to pick something up. Pt does note that her low back will get more painful when standing in one place. Sitting with heating pad will decrease her LBP. Ribs will hurt more with tight clothing or with lying down wrong. Takes awhile at night before she is comfortable. No pain going down the legs. No numbness or tingling. Has had some issues with R knee OA and had recent joint injection. PMhx: Osteoporosis Pain Comments 0-12/13 Current Work Status Retired Objective Other/Pertinent Posture: thoracolumbar spine scoliosis. Increased Objective thoracic kyphosis. Increased lumbar spine lordosis. Trunk ROM: Flex WNL, Ext mod dec with LBP, R SB min dec , L SB mod dec with L LBP, R rot WNL, L rot min dec with R LBP Hip ROM WNL bilat SLR: ROM WNL bilat. R SI region pain on R SLR at 90 deg Review of current HEP: Hooklying rotation Single knee to chest from legs out straight position and rapid pace Double knee to chest from position of legs out straight Straight leg crossover rotation stretch Bridges MMT: myotomes WNL. Abdominal flexion - 4-/5 with pain into the lumbar spine. Rotational trunk strength 4-/5 Assessment Assessment/ Pt presents to the clinic with signs and sxs consistent Impression with lumbar spine spondylolisthesis and thoracic spine postural dysfunction. Skilled PT necessary to incorporate ther ex, nm cristobal, manual therapy and pt education to decrease pain and improve mobility. 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 Pt will be independent with HEP in 8 weeks. Goals 2. Pt will exercise as desired without c/o in 10 weeks. 3. 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 Coordination/ Referral Source Communication With Treatment Plan/ Manual Therapy,Neuromuscular Re-ed,Self-Care/Home Direct Interventions Management,Therapeutic Activities,Therapeutic Exercises Frequency/Duration 1-2x/wk for 12 weeks Patient Will Be Completion of LTG(s),Skills Plateau,Independent w/HEP, Discharged From Independently Progressing Therapy Evaluation Billing Untimed Code 45 Treatment Minutes Complexity Moderate Certification Information Initial 03/17/25 Certification Date Ending Certification 06/15/25 Date Provider Signature Yes Required Provider Signature POC & Medical Necessity Shows Agreement With Physician NPI Number Write NPI# Here Physician Comment/ : Change Physician Signature Please Sign/Date Here & Date Requested
== END 2025-04-27 11:12 | disposition home or self-care (01) ==
PROVIDERS: PCP Student in an Organized Health Care Education/Training Program; Visit Provider Family Medicine
DX: M43.16 Spondylolisthesis, lumbar region (principal); M54.9 Dorsalgia, unspecified; M40.294 Other kyphosis, thoracic region; G89.29 Other chronic pain; Z51.89 Encounter for other specified aftercare
CPT/HCPCS: 97110; 97140; 97162

== ENCOUNTER 2025-07-05 13:02 | Outpatient (CLI) | payer MEDICARE, BC, SELFPAY ==
--- NOTE | 2025-07-05 13:30 | CRLHL7_ITS ---
For Patients: As a result of the Century Cures Act, medical imaging exams and procedure reports are released immediately into your electronic medical record. You may view this report before your referring provider. If you have questions, please contact your health care provider. XR DXA Bone Mineral Density (BMD) Reason for exam: Osteoporosis. Current height (in): 66.0. Weight (lb): 139.0. Menopause age: 54. Ethnicity: White. 1. Have you had a previous hip or vertebral fracture? No. 2. Have you had any fractures during your adult life which did not result from significant trauma (e.g., auto accident)? Yes. 3. Did either of your parents have a hip fracture? No. 4. Do you smoke? No. 5. Have you ever taken Glucocorticoids? No. 6. Do you have rheumatoid arthritis? No. 7. Do you have secondary osteoporosis? Yes. 8. Do you drink 3 or more alcoholic drinks per day? No. 9. Are you being treated for osteoporosis? Yes. 10. Have you ever taken any of the following medications: Actonel, Evista, Fosamax, Miacalcin, Reclast, Boniva, Forteo, HRT (i.e. estrogen/hormone therapy), Protelos, Prolia, Vitamin D, Calcium, other ??? please specify. ANSWER: Yes, Fosamax, Reclast, vitamin D, calcium. 11. Do you have any of the following medical conditions: Anorexia or bulimia, asthma or emphysema, end stage renal disease, hyperparathyroidism, any seizure disorders, cancer, inflammatory bowel diseases, hysterectomy, other ??? please specify. ANSWER: Yes, epilepsy. 12. What was your maximum height (inches)? 67. 13. Do you perform weight bearing exercise regularly? Yes. 14. Do you regularly consume dairy products? Yes. 15. Do you drink caffeinated beverages? No. 16. At what age did your period start? 15. 17. Are you premenopausal? No. 18. How many full term pregnancies have you had? 2. 19. Have you ever missed your period for more than 6 months in a row (not including or menopause)? Not provided. TECHNIQUE: Bone mineral density study was performed using the [employer]. FINDINGS: The results of the study expressed as bone mineral density (BMD) are as follows: Lumbar spine L1 to L4: BMD: 0.848 g/cm2. T-score: -1.8. Z-score: 0.2. Neck Left: BMD: 0.542 g/cm2. T-score: -2.8. Z-score: -1.0. Right: BMD: 0.485 g/cm2. T-score: -3.3. Z-score: -1.5. Total Left: BMD: 0.697 g/cm2. T-score: -2.0. Z-score: -0.5. Right: BMD: 0.641 g/cm2. T-score: -2.5. Z-score: -1.0. IMPRESSION: Osteoporosis. COMPARISON: Compared with scan of 06/25/2023, the bone mineral density has decreased by 1.9 percent at the spine and increased by 0.8 percent at the hip. Compared with scan of 05/02/2021, the bone mineral density has increased by 1.5 percent at the spine and increased by 0.4 percent at the hip. Phi Butler M.D. Diagnostic Radiologist [email or web address] bM/Dictated by: Phi Butler MD @ 07/05/2025 3:57:00 PM (Electronically Signed)
== END 2025-07-05 13:03 | disposition home or self-care (01) ==
LOC: RAD 13:03
PROVIDERS: PCP Student in an Organized Health Care Education/Training Program; Visit Provider Student in an Organized Health Care Education/Training Program
DX: M81.0 Age-related osteoporosis without current pathological fracture (principal)
CPT/HCPCS: 77080